=== PATIENT | female | born 1945 | race Caucasian/White ===

== ENCOUNTER 2019-06-21 07:06 | Outpatient (CLI) | payer MEDICARE, OTHER, SELFPAY ==
[2019-06-21 08:12] LABS: Alanine Aminotransferase 22 U/L (4-35); Albumin Level 4.3 g/dL (3.5-5.1); Alkaline Phosphatase 111 U/L (38-126); Aspartate Amino Transferase 27 U/L (14-36); Bilirubin,Total 0.6 mg/dL (0.2-1.3); Blood Urea Nitrogen 18 mg/dL (7-17); Calcium 9.3 mg/dL (8.4-10.2); Carbon Dioxide 29 mmol/L (22-30); Chloride 98 mmol/L (98-107); Cholesterol 214 mg/dL (0-200); Estimated Glomerular Filt Rate > 60; Glucose 85 mg/dL (65-105); HDL Direct 66 mg/dL; Potassium 4.6 mmol/L (3.4-5.0); Sodium 140 mmol/L (137-145); Triglycerides 131 mg/dL (<150)
[2019-06-21 08:23] LABS: LDL Cholesterol Direct 116 mg/dL
[2019-06-21 08:40] LABS: Vitamin D 25 Hydroxy 55.6 ng/mL
== END 2019-06-21 07:07 | disposition home or self-care (01) ==
LOC: ANHLAB 07:11
PROVIDERS: PCP Emergency Medicine; Visit Provider Emergency Medicine
DX: E78.2 Mixed hyperlipidemia (principal); E55.9 Vitamin D deficiency, unspecified
CPT/HCPCS: 36415; 80053; 80061; 82306

== ENCOUNTER → 2019-07-30 13:27 | Outpatient (CLI) | payer MEDICARE, OTHER, SELFPAY ==
--- NOTE | ~2019-07-30 | XR_ITS ---
EXAMINATION: XR foot RT min 3V DATE: 07/30/2019 13:59 INDICATION: Hallux rigidus. TECHNIQUE: 3 views of right foot were obtained. COMPARISON: Right foot radiographs 08/16/2018 FINDINGS: Pes planus is noted. There are changes of arthrodesis procedure of first metatarsophalangea l joint with bone graft and dorsal plate and screws. There are changes of arthrodesis procedure at se cond proximal interphalangeal joint with screw fixation. There is absence of the head of fourth proxi mal phalanx, which may be postsurgical. There are adjacent foci of heterotopic ossification. There is severe osteoarthritis of the ankle joint, subtalar joint, and talonavicular joint. There is mild to moderate osteoarthritis of many of the interphalangeal joints. There are enthesophytes at the posteri or and plantar aspects of calcaneal tuberosity. IMPRESSION: 1. Arthrodesis procedures at first metatarsophalangeal joint and second proximal interphalangeal join t. 2. Polyarticular osteoarthritis. 3. Pes planus. Reviewed, dictated and finalized at location A. IMPRESSION: 1. Arthrodesis procedures at first metatarsophalangeal joint and second proxima l interphalangeal joint. 2. Polyarticular osteoarthritis. 3. Pes planus.
== END ==
PROVIDERS: PCP Emergency Medicine; Visit Provider Podiatrist Foot & Ankle Surgery
DX: M20.21 Hallux rigidus, right foot (principal); M19.071 Primary osteoarthritis, right ankle and foot
CPT/HCPCS: 73630

== ENCOUNTER 2019-08-13 10:57 | Outpatient (CLI) | payer MEDICARE, OTHER, SELFPAY ==
--- NOTE | ~2019-08-13 | XR_ITS ---
EXAMINATION: XR foot RT min 3V DATE: 08/13/2019 11:23 INDICATION: Right foot arthritis TECHNIQUE: Dorsoplantar, lateral, and 2 oblique views of the right foot were obtained. COMPARISON: 07/30/2019 FINDINGS: Again noted are changes of arthrodesis procedure at the first metatarsophalangeal and secon d proximal interphalangeal joints. There is severe osteoarthritis of the ankle joint, the subtalar ervin int, and the talonavicular joint. Again noted is absence of the head of the fourth proximal phalanx, possibly postsurgical. The soft tissues are unremarkable. There is no fracture. Changes of prior dist al fibular fracture are noted. IMPRESSION: 1. Arthrodesis procedures of the first metatarsophalangeal joint and second interphalangeal joint, un changed. 2. Polyarticular osteoarthritis. Reviewed, dictated and finalized at location A. IMPRESSION: 1. Arthrodesis procedures of the first metatarsophalangeal joint and second int erphalangeal joint, unchanged. 2. Polyarticular osteoarthritis.
== END 2019-08-13 10:58 | disposition home or self-care (01) ==
PROVIDERS: PCP Emergency Medicine; Visit Provider Podiatrist Foot & Ankle Surgery
DX: M13.871 Other specified arthritis, right ankle and foot (principal); Z98.1 Arthrodesis status
CPT/HCPCS: 73630

== ENCOUNTER 2019-09-10 10:33 | Outpatient (CLI) | payer MEDICARE, OTHER, SELFPAY ==
--- NOTE | ~2019-09-10 | XR_ITS ---
EXAMINATION: XR foot RT min 3V DATE: 09/10/2019 10:51 INDICATION: Acquired hallux limitus of right great toe. TECHNIQUE: 3 views of right foot were obtained. COMPARISON: Right foot radiographs 08/13/2019, 08/16/2018 FINDINGS: Pes planus is noted. There are changes of arthrodesis procedure of first metatarsophalangea l joint with dorsal plate and screws and bone graft. There are changes of arthrodesis procedure of se cond proximal interphalangeal joint with instrumentation. No acute fracture. There is severe osteoart hritis of the ankle joint, subtalar joint, and talonavicular joint. There is mild osteoarthritis of m any of the midfoot joints and interphalangeal joints. There is mild osteoarthritis of second and thir d metatarsophalangeal joints. There are enthesophytes at the posterior plantar aspects of calcaneal t uberosity. IMPRESSION: 1. Polyarticular osteoarthritis. 2. Arthrodesis of first metatarsophalangeal joint and second proximal interphalangeal joint. 3. Pes planus. Reviewed, dictated and finalized at location E. IMPRESSION: 1. Polyarticular osteoarthritis. 2. Arthrodesis of first metatarsophalangeal joint and second proximal interphal angeal joint. 3. Pes planus.
== END 2019-09-10 10:34 | disposition home or self-care (01) ==
PROVIDERS: PCP Emergency Medicine; Visit Provider Podiatrist Foot & Ankle Surgery
DX: M20.5X1 Other deformities of toe(s) (acquired), right foot (principal); M19.071 Primary osteoarthritis, right ankle and foot
CPT/HCPCS: 73630

== ENCOUNTER 2019-10-09 07:30 | Outpatient (CLI) | payer MEDICARE, OTHER, SELFPAY ==
--- NOTE | ~2019-10-09 | XR_ITS ---
EXAMINATION: XR foot RT min 3V DATE: 10/09/2019 07:49 INDICATION: Acquired hallux limitus of right great toe. Postop. TECHNIQUE: 3 views of right foot were obtained. COMPARISON: Right foot radiographs 09/10/2019, 08/13/2019 FINDINGS: Pes planus is noted. There are changes of arthrodesis procedure of first metatarsophalangea l joint with plate and screws and bone graft. There are changes of arthrodesis procedure of second pr oximal interphalangeal joint. There is a transverse fracture of proximal metaphysis of second proxima l phalanx. The distal fracture fragment demonstrates impaction. There is a nonaggressive lytic lesion diaphysis of fourth proximal phalanx, likely benign. There may be surgical changes of head of fourth proximal phalanx. There is mild to moderate osteoarthritis of many of the midfoot joints and interph alangeal joints. There is severe osteoarthritis of the ankle joint, subtalar joint, and talonavicular joint. There are enthesophytes at the posterior and plantar aspects of calcaneal tuberosity. IMPRESSION: 1. Transverse fracture proximal diaphysis of second proximal phalanx. 2. Arthrodesis procedures of first metatarsophalangeal joint and second proximal interphalangeal join t. 3. Nonaggressive lytic lesion of diaphysis of fourth proximal phalanx, likely a benign lesions such a s an enchondroma. 4. Polyarticular osteoarthritis. 5. Pes planus. Reviewed, dictated and finalized at location A. IMPRESSION: 1. Transverse fracture proximal diaphysis of second proximal phalanx. 2. Arthrodesis procedures of first metatarsophalangeal joint and second proxima l interphalangeal joint. 3. Nonaggressive lytic lesion of diaphysis of fourth proximal phalanx, likely a benign lesions such as an enchondroma. 4. Polyarticular osteoarthritis. 5. Pes planus.
== END 2019-10-09 07:31 | disposition home or self-care (01) ==
LOC: ANHIMG 07:33
PROVIDERS: PCP Emergency Medicine; Visit Provider Podiatrist Foot & Ankle Surgery
DX: M20.5X1 Other deformities of toe(s) (acquired), right foot (principal); S92.511A Displaced fracture of proximal phalanx of right lesser toe(s), initial encounter for closed fracture; X58.XXXA Exposure to other specified factors, initial encounter; Z98.1 Arthrodesis status; M89.9 Disorder of bone, unspecified; M19.071 Primary osteoarthritis, right ankle and foot; M21.41 Flat foot [pes planus] (acquired), right foot
CPT/HCPCS: 73630

== ENCOUNTER 2020-01-08 07:00 | Outpatient (CLI) | payer MEDICARE, OTHER, SELFPAY ==
[2020-01-08 07:33] LABS: Alanine Aminotransferase 25 U/L (4-35); Albumin Level 4.1 g/dL (3.5-5.1); Alkaline Phosphatase 102 U/L (38-126); Anion Gap 6 mmol/L (8-16); Aspartate Amino Transferase 33 U/L (14-36); Bilirubin,Total 0.6 mg/dL (0.2-1.3); Blood Urea Nitrogen 20 mg/dL (7-17); Calcium 9.1 mg/dL (8.4-10.2); Carbon Dioxide 31 mmol/L (22-30); Chloride 103 mmol/L (98-107); Cholesterol 220 mg/dL (0-200); Estimated Glomerular Filt Rate > 60; Glucose 93 mg/dL (65-105); HDL Direct 55 mg/dL; Potassium 4.4 mmol/L (3.4-5.0); Sodium 140 mmol/L (137-145); Triglycerides 129 mg/dL (<150)
[2020-01-08 07:44] LABS: LDL Cholesterol Direct 126 mg/dL
== END 2020-01-08 07:01 | disposition home or self-care (01) ==
PROVIDERS: PCP Emergency Medicine; Visit Provider Emergency Medicine
DX: E78.5 Hyperlipidemia, unspecified (principal)
CPT/HCPCS: 36415; 80053; 80061

== ENCOUNTER 2020-02-09 14:00 | Emergency (ER) | payer MEDICARE, OTHER, SELFPAY ==
--- NOTE | 2020-02-09 14:02 | ED.GENADULT ---
HPI - General Adult General Chief complaint: Chest Pain Stated complaint: Chest Pain Time Seen by Provider: 02/09/20 14:02 Source: patient Mode of arrival: ambulatory Limitations: no limitations History of Present Illness HPI narrative: 75-year-old female patient presents to the [facility] with complaints of shortness of breath and chest pain for the past 2 days. Patient states that yesterday she did have an episode of nausea and vomiting. Patient denies any nausea vomiting today. Patient states that the shortness of breath gets really bad with exertion especially walking or trying to go upstairs. Patient states she has never had this before. Patient states she did have foot surgery in June of this year. Patient states she did take some Tylenol as well as some Coricidin for her symptoms today. Patient denies any fevers, body aches or chills but states she does have what she describes just overall muscle aches. Related Data Home Medications Medication Instructions Recorded Confirmed calcium carbonate-vitamin D3 600 1 cap PO DAILY cap 06/25/19 mg calcium-200 unit capsule cholecalciferol (vitamin D3) 25 1,000 unit PO DAILY 06/25/19 mcg (1,000 unit) capsule gelatin 650 mg capsule See Rx Instructions .ROUTE .COMPLEX 06/25/19 inulin 1.5 gram chewable tablet See Rx Instructions .ROUTE .COMPLEX 06/25/19 multivit with 1 tablet PO DAILY 06/25/19 uuceuxjb-eqzb-GV-lutein 8 mg iron-400 mcg-300 mcg tablet naproxen sodium 220 mg tablet 220 mg PO DAILY PRN tablet 06/25/19 Allergies Allergy/AdvReac Type Severity Reaction Status Date / Time No Known Allergies Allergy Unverified 11/01/18 10:26 Review of Systems Review of Systems: Narrative: CONSTITUTIONAL: Denies fever, chills, or sweats. EYES: Denies visual changes, redness, or discharge. ENT: Denies rhinorrhea, congestion, sore throat, or otalgia. CARDIOVASCULAR: Positive generalized chest pain, denies palpitations, or edema. RESPIRATORY: Denies cough, positive dyspnea with exertion. GASTROINTESTINAL: Denies abdominal pain, nausea, vomiting, or diarrhea. GENITOURINARY: Denies dysuria or hematuria. SKIN: Denies rash or itching. MUSCULOSKELETAL: Denies back pain, joint pain, or myalgia. NEUROLOGIC: Denies headache, numbness, or weakness. PSYCHIATRIC: Denies anxiety or depression. [facility] Past Medical History Medical History (Updated 02/09/20 @ 14:33 by DAVIDA Wilcox) Breast cancer With chemo and a right-sided lumpectomy Hyperlipidemia Other screening mammogram Pulmonary embolism Surgical History Surgical History (Updated 02/09/20 @ 14:33 by DAVIDA Wilcox) H/O foot surgery Right foot June 2019 Family History Family History Sibling Family history of multiple sclerosis Mother Family history of Alzheimer's disease, Onset Age: 86 Other Family history of coronary artery disease Social History Social History Smoking status: Former smoker Smoking end date: 04/25/74 Alcohol intake: current Exam Narrative: Exam Narrative: GENERAL: Well-appearing, well-nourished, and in no acute distress. HEAD: Normocephalic, atraumatic. EYES: PERRLA and EOMI. ENT: Nares clear, no rhinorrhea or epistaxis. Mucous membranes moist. NECK: Supple. No lymphadenopathy CHEST: Clear to auscultation. No respiratory distress. Patient able talk clear complete sentences. No tripoding noted. HEART: Regular rate and rhythm. No murmur heard. Normal peripheral pulses. Patient does have 1-2+ pitting edema noted to bilateral lower extremities. ABDOMEN: Soft, nontender, nondistended, normal active bowel sounds. EXTREMITIES: Normal range of motion. SKIN: Warm, dry, no rash. NEURO: No focal deficits. Alert and oriented x3. Course Vital Signs Vital signs: Vital Signs Temperature 36.9 C 02/09/20 14:14 Pulse Rate 97 10
--- NOTE | 2020-02-09 14:05 | ECG_ITS ---
Measurements Intervals [place] Rate: 99 P: 60 CT: 150 QRS: 70 QRSD: 82 T: 51 QT: 347 QTc: 445 Interpretive Statements SINUS RHYTHM FREQUENT ATRIAL PREMATURE COMPLEXES BORDERLINE T WAVE ABNORMALITY- ANTERIOR LEADS BASELINE ARTIFACT- II, III, AVF ABNORMAL ECG Electronically Signed On 02-09-2020 18:13:14 CDT by Gerardo Peters D.O.
[2020-02-09 14:14] VITALS: BP 114/72; PULSE 97; RESP 18; TEMP 36.9; O2SAT 98
--- NOTE | 2020-02-09 14:42 | PC.NURSE ---
1419 [facility] called. pt requested to go to [facility] here for transfer.1425 transferred care to [facility]. no change in status since arrival.
--- NOTE | 2020-02-09 15:37 | PC.NURSE ---
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
== END 2020-02-09 14:25 | disposition short-term general hospital (02) ==
PROVIDERS: Emergency Provider Nurse Practitioner Family; PCP Emergency Medicine
DX: R06.02 Shortness of breath (principal); R07.9 Chest pain, unspecified; R94.31 Abnormal electrocardiogram [ECG] [EKG]; Z87.891 Personal history of nicotine dependence; E78.5 Hyperlipidemia, unspecified; Z86.711 Personal history of pulmonary embolism; Z85.3 Personal history of malignant neoplasm of breast
CPT/HCPCS: 93005; 99215; G0463

== ENCOUNTER 2020-02-26 13:34 | Outpatient (CLI) | payer MEDICARE, OTHER, SELFPAY ==
--- NOTE | 2020-03-01 07:54 | WPDHOLTEREM ---
Holter/Event Monitor Holter/Event Monitor Date of procedure: 02/26/20 Procedure Type: 48 hour holter monitor Indications: Dyspnea Conclusion: 1. 48 hour holter monitor on 02/26/20. 2. Predominant rhythm is sinus rhythm. HR range 67-128 bpm; average HR 88 bpm. 3. There are 54 premature supraventricular complexes and 3 supraventricular couplets. One short run of atrial tachycardia at 176 bpm lasting 4 beats. 4. There are 108 premature ventricular complexes and 2 ventricular couplets. No ventricular tachycardia. 5. No sinoatrial or atrioventricular blocks. No significant pauses greater than 2 seconds. 6. No symptoms available for correlation.
== END 2020-02-26 13:35 | disposition home or self-care (01) ==
PROVIDERS: PCP Emergency Medicine; Visit Provider Emergency Medicine
DX: R06.00 Dyspnea, unspecified (principal)
CPT/HCPCS: 93225; 93226

== ENCOUNTER 2021-01-06 10:34 | Outpatient (CLI) | payer MEDICARE, OTHER, SELFPAY ==
[2021-01-06 12:11] LABS: Alanine Aminotransferase 27 U/L (4-35); Albumin Level 4.3 g/dL (3.5-5.1); Alkaline Phosphatase 90 U/L (38-126); Anion Gap 10 mmol/L (8-16); Aspartate Amino Transferase 29 U/L (14-36); Bilirubin,Total 0.3 mg/dL (0.2-1.3); Blood Urea Nitrogen 18 mg/dL (7-17); Calcium 9.6 mg/dL (8.4-10.2); Carbon Dioxide 28 mmol/L (22-30); Chloride 102 mmol/L (98-107); Cholesterol 248 mg/dL (0-200); Estimated Glomerular Filt Rate > 60; Glucose 93 mg/dL (65-110); HDL Direct 61 mg/dL; Potassium 4.4 mmol/L (3.4-5.0); Sodium 140 mmol/L (137-145); Triglycerides 145 mg/dL (<150)
[2021-01-06 12:22] LABS: LDL Cholesterol Direct 133 mg/dL
== END 2021-01-06 10:35 | disposition home or self-care (01) ==
PROVIDERS: PCP Emergency Medicine; Visit Provider Emergency Medicine
DX: E78.2 Mixed hyperlipidemia (principal)
CPT/HCPCS: 36415; 80053; 80061

== ENCOUNTER 2021-07-28 07:12 | Outpatient (CLI) | payer MEDICARE, OTHER, SELFPAY ==
[2021-07-28 08:23] LABS: Alanine Aminotransferase 26 U/L (4-35); Alkaline Phosphatase 93 U/L (38-126); Anion Gap 6 mmol/L (8-16); Aspartate Amino Transferase 29 U/L (14-36); Bilirubin,Total 0.4 mg/dL (0.2-1.3); Blood Urea Nitrogen 18 mg/dL (7-17); Calcium 8.8 mg/dL (8.4-10.2); Carbon Dioxide 25 mmol/L (22-30); Chloride 107 mmol/L (98-107); Cholesterol 235 mg/dL (0-200); Estimated Glomerular Filt Rate > 60; Glucose 86 mg/dL (65-110); HDL Direct 48 mg/dL; Potassium 4.1 mmol/L (3.4-5.0); Sodium 138 mmol/L (137-145); Triglycerides 130 mg/dL (<150)
[2021-07-28 08:33] LABS: LDL Cholesterol Direct 130 mg/dL
== END 2021-07-28 07:13 | disposition home or self-care (01) ==
PROVIDERS: PCP Emergency Medicine; Visit Provider Emergency Medicine
DX: E78.2 Mixed hyperlipidemia (principal)
CPT/HCPCS: 36415; 80053; 80061

== ENCOUNTER 2022-01-27 07:35 | Outpatient (CLI) | payer MEDICARE, OTHER, SELFPAY ==
[2022-01-27 08:04] LABS: Alanine Aminotransferase 30 U/L (6-35); Albumin Level 4.2 g/dL (3.5-5.1); Alkaline Phosphatase 96 U/L (38-126); Anion Gap 7 mmol/L (8-16); Aspartate Amino Transferase 31 U/L (14-36); Bilirubin,Total 0.5 mg/dL (0.2-1.3); Blood Urea Nitrogen 17 mg/dL (7-17); Calcium 8.9 mg/dL (8.4-10.2); Carbon Dioxide 29 mmol/L (22-30); Chloride 104 mmol/L (98-107); Cholesterol 233 mg/dL (0-200); Estimated Glomerular Filt Rate 53; Glucose 91 mg/dL (65-110); HDL Direct 55 mg/dL; Potassium 4.5 mmol/L (3.4-5.0); Sodium 140 mmol/L (137-145); Triglycerides 121 mg/dL (<150)
[2022-01-27 08:15] LABS: LDL Cholesterol Direct 143 mg/dL
== END 2022-01-27 07:36 | disposition home or self-care (01) ==
PROVIDERS: PCP Emergency Medicine; Visit Provider Emergency Medicine
DX: E78.2 Mixed hyperlipidemia (principal)
CPT/HCPCS: 36415; 80053; 80061

== ENCOUNTER 2022-05-31 07:57 | Outpatient (CLI) | payer MEDICARE, OTHER, SELFPAY ==
[2022-05-31 08:35] LABS: Alanine Aminotransferase 31 U/L (6-35); Albumin Level 4.2 g/dL (3.5-5.1); Alkaline Phosphatase 109 U/L (38-126); Anion Gap 4 mmol/L (8-16); Aspartate Amino Transferase 31 U/L (14-36); Bilirubin,Total 0.6 mg/dL (0.2-1.3); Blood Urea Nitrogen 16 mg/dL (7-17); Carbon Dioxide 29 mmol/L (22-30); Chloride 103 mmol/L (98-107); Cholesterol 250 mg/dL (0-200); Estimated Glomerular Filt Rate 53; Glucose 95 mg/dL (65-110); HDL Direct 55 mg/dL; Potassium 4.4 mmol/L (3.4-5.0); Sodium 136 mmol/L (137-145); Triglycerides 139 mg/dL (<150)
[2022-05-31 08:46] LABS: LDL Cholesterol Direct 137 mg/dL
== END 2022-05-31 07:58 | disposition home or self-care (01) ==
LOC: ANHLAB 08:00
PROVIDERS: PCP Emergency Medicine; Visit Provider Emergency Medicine
DX: E78.2 Mixed hyperlipidemia (principal)
CPT/HCPCS: 36415; 80053; 80061

== ENCOUNTER 2023-02-09 10:03 | Emergency (ER) | payer MEDICARE, OTHER, SELFPAY ==
[2023-02-09 10:13] VITALS: BP 136/76; PULSE 82; RESP 20; TEMP 36.2; O2SAT 97
--- NOTE | 2023-02-09 10:13 | ED.GENADULT ---
HPI - General Adult General Chief complaint: Ear Stated complaint: Left Ear Irritation Time Seen by Provider: 02/09/23 10:14 Source: patient, RN notes reviewed and old records reviewed Mode of arrival: ambulatory Limitations: no limitations History of Present Illness HPI narrative: 78-year-old female presents to the [facility] with left ear pain since Tuesday. Has taken Tylenol. States the pain radiates into her left neck and into her throat. Denies fevers, chest pain, abdominal pain. No sinus congestion, denies cough. Onset (ago): day(s) (5) Related Data Home Medications Medication Instructions Recorded Confirmed cholecalciferol (vitamin D3) 25 1,000 unit PO DAILY 06/25/19 02/09/23 mcg (1,000 unit) capsule rwjhhzpg-ldio-etvl 8 mg-folic 400 1 tablet PO DAILY 06/25/19 02/09/23 mcg-K 50 mcg-lutein 300 mcg tablet (Centrum Silver Women) Allergies Allergy/AdvReac Type Severity Reaction Status Date / Time No Known Allergies Allergy Verified 02/09/23 10:06 Review of Systems Review of Systems: All systems reviewed & are unremarkable except as noted in HPI and below Constitutional: Constitutional: Reports no additional constitutional complaints Eyes: Eyes: Reports no additional eye complaints ENT: Reports as per HPI Cardiovascular: Cardiovascular: Reports no additional cardiovascular complaints, Denies chest pain and Denies dyspnea Respiratory: Respiratory: Reports no additional respiratory complaints, Denies chest congestion, Denies cough and Denies dyspnea Gastrointestinal: Gastrointestinal: Reports no additional gastrointestinal complaints, Denies abdominal pain, Denies nausea and Denies vomiting Musculoskeletal: Musculoskeletal: Reports no additional musculoskeletal complaints Integumentary/Breasts: Skin/Breast: Reports system reviewed and no additional complaints, except as docu Neurologic: Reports system reviewed and no additional complaints, except as documented Psychiatric: Psychiatric: Reports no additional psychiatric complaints Allergic/Immunologic: Allergic/Immunologic: Reports no additional allergic/immunologic complaints [facility] Past Medical History Medical History Breast cancer With chemo and a right-sided lumpectomy Hyperlipidemia Other screening mammogram Pulmonary embolism Surgical History Surgical History H/O foot surgery Right foot June 2019 Family History Family History Sibling Family history of multiple sclerosis Mother Family history of Alzheimer's disease, Onset Age: 86 Other Family history of coronary artery disease Social History Social History Smoking status: Former smoker Smoking end date: 04/25/74 Alcohol intake: current Current Housing: Decline to Answer Concerned About Future Housing: Decline to Answer Difficulty Paying Gas/Electric Bills: Decline to Answer Difficulty Paying for Meds: Decline to Answer Currently Unemployed: Decline to Answer Education: Decline to Answer Difficulty w/ Childcare or Family Care: Decline to Answer Comments At the time of my signature, I reviewed and agree with the nursing past medical, surgical, social, and family history. There is no relevant family history pertinent to the patient complaint. Exam Const: General: cooperative, healthy appearing, comfortable, no acute distress, well developed, alert and well nourished Nutritional Appearance: well nourished Orientation/consciousness: patient oriented x3 Limitations: no limitations HENMT: Head: normal to inspection Ears: hearing grossly normal bilaterally, external ears normal, EAC's normal and TM abnormal wth effusion serous on the right and erythematous on the left Face/Nose/Sinus: Normal external nose present,
== END 2023-02-09 10:29 | disposition home or self-care (01) ==
PROVIDERS: Emergency Provider Nurse Practitioner; PCP Emergency Medicine
DX: H65.03 Acute serous otitis media, bilateral (principal); H66.92 Otitis media, unspecified, left ear; Z87.891 Personal history of nicotine dependence; E78.5 Hyperlipidemia, unspecified; Z86.711 Personal history of pulmonary embolism; Z85.3 Personal history of malignant neoplasm of breast; Z92.21 Personal history of antineoplastic chemotherapy; Z90.11 Acquired absence of right breast and nipple
CPT/HCPCS: 99213; G0463

== ENCOUNTER 2023-02-11 05:00 | Emergency (ER) | payer MEDICARE, OTHER, SELFPAY ==
[2023-02-11 05:02] VITALS: BP 152/78; PULSE 95; RESP 20; TEMP 36.9; O2SAT 98
--- NOTE | 2023-02-11 06:36 | ED.GENADULT ---
HPI - General Adult General Chief complaint: Ear Stated complaint: ear pain Time Seen by Provider: 02/11/23 05:29 History of Present Illness HPI narrative: Patient is a 78-year-old female who presents the emergency department with chief complaint of left ear pain. Patient reports she was seen in urgent care recently diagnosed with an ear infection and started on amoxicillin patient reports she is continues to have pain in the TMJ joint area that is worse whenever she opens her mouth the patient reports she has pain that radiates into the ear patient reports no trauma denies pain in the mastoid area denies fever runny nose or sore throat. Related Data Home Medications Medication Instructions Recorded Confirmed cholecalciferol (vitamin D3) 25 1,000 unit PO DAILY 06/25/19 02/09/23 mcg (1,000 unit) capsule lwsmckmx-wavp-qivt 8 mg-folic 400 1 tablet PO DAILY 06/25/19 02/09/23 mcg-K 50 mcg-lutein 300 mcg tablet (Centrum Silver Women) Allergies Allergy/AdvReac Type Severity Reaction Status Date / Time No Known Allergies Allergy Verified 02/09/23 10:06 Review of Systems Review of Systems: A 10 system review of systems was completed on the patient and is negative except for what is stated in the HPI. Nursing and ancillary documentation was reviewed. [facility] Past Medical History Medical History Breast cancer With chemo and a right-sided lumpectomy Hyperlipidemia Other screening mammogram Pulmonary embolism Surgical History Surgical History H/O foot surgery Right foot June 2019 Family History Family History Sibling Family history of multiple sclerosis Mother Family history of Alzheimer's disease, Onset Age: 86 Other Family history of coronary artery disease Social History Social History Smoking status: Former smoker Smoking end date: 04/25/74 Alcohol intake: current Current Housing: Decline to Answer Concerned About Future Housing: Decline to Answer Difficulty Paying Gas/Electric Bills: Decline to Answer Difficulty Paying for Meds: Decline to Answer Currently Unemployed: Decline to Answer Education: Decline to Answer Difficulty w/ Childcare or Family Care: Decline to Answer Exam Narrative: GENERAL: Well-appearing, well-nourished, and in no acute distress. HEAD: Normocephalic, atraumatic. EYES: PERRLA and EOMI. ENT: Nares clear, no rhinorrhea or epistaxis. Mucous membranes moist. Tenderness to palpation of the left TMJ area NECK: Supple. CHEST: Clear to auscultation. No respiratory distress. HEART: Regular rate and rhythm. No murmur heard. Normal peripheral pulses. ABDOMEN: Soft, nontender, nondistended, normal active bowel sounds. EXTREMITIES: Normal range of motion. No edema. SKIN: Warm, dry, no rash. NEURO: No focal deficits. Alert and oriented x3. PSYCH: Normal mood and affect. Course Vital Signs Vital signs: Vital Signs Temperature 36.9 C 02/11/23 05:02 Pulse Rate 95 02/11/23 05:02 Respiratory Rate 20 02/11/23 05:02 Blood Pressure 152/78 H 02/11/23 05:02 Pulse Oximetry 98 02/11/23 05:02 Oxygen Delivery Room Air 02/11/23 05:02 Temperature 36.9 C 02/11/23 05:02 Pulse Rate 95 02/11/23 05:02 Respiratory Rate 20 02/11/23 05:02 Blood Pressure 152/78 H 02/11/23 05:02 Pulse Oximetry 98 02/11/23 05:02 Oxygen Delivery Room Air 02/11/23 05:02 Medical Decision Making [facility] Narrative Medical decision making narrative: Differential diagnosis TMJ pain otitis media, Patient's exam was consistent with TMJ pain the patient has been treated with oral antibiotics but showing no signs of acute otitis media on exam. The patient will be started on a pu
[2023-02-11 07:05] VITALS: BP 148/68; PULSE 88; RESP 16; O2SAT 100
== END 2023-02-11 07:06 | disposition home or self-care (01) ==
PROVIDERS: Emergency Provider Emergency Medicine; PCP Emergency Medicine
DX: M26.609 Unspecified temporomandibular joint disorder, unspecified side (principal); E78.5 Hyperlipidemia, unspecified; Z85.3 Personal history of malignant neoplasm of breast; Z87.891 Personal history of nicotine dependence
CPT/HCPCS: 96372; 99283; J1100

== ENCOUNTER 2023-03-04 10:59 | Outpatient (CLI) | payer MEDICARE, OTHER, SELFPAY ==
--- NOTE | ~2023-03-04 | CT_ITS ---
EXAMINATION: CT cervical spine wo con DATE: 03/04/2023 11:16 INDICATION: Left neck pain. TECHNIQUE: Computed tomography (CT) of the cervical spine was performed without intravenous contrast. Automated exposure control and iterative reconstruction technique were employed. The dose-length pro duct was 178.07 mGy-cm. COMPARISON: None FINDINGS: There is 10 degrees levoscoliosis of cervical spine. Vertebral body heights are normal. The re is mildly decreased disc height at C3-C4 and C4-C5 and severely decreased disc height at C5-C6 and C6-C7. The following disc levels are specifically discussed: C2-C3: There is mild bilateral uncovertebral joint osteoarthritis. There is mild bilateral facet join t osteoarthritis. There is mild right neural foraminal stenosis. There is no central canal stenosis. C3-C4: There is moderate bilateral uncovertebral joint osteoarthritis. There is moderate bilateral fa cet joint osteoarthritis. There is mild right neural foraminal stenosis. There is no central canal st enosis. C4-C5: There is moderate bilateral uncovertebral joint osteoarthritis. There is moderate and severe l eft facet joint osteoarthritis. There is mild bilateral neural foraminal stenosis. There is mild cent ral canal stenosis. C5-C6: There is severe bilateral uncovertebral joint osteoarthritis. There is severe bilateral facet joint osteoarthritis. There is moderate right and mild left neural foraminal stenosis. There is mild central canal stenosis. C6-C7: There is severe bilateral uncovertebral joint osteoarthritis. There is mild bilateral facet ervin int osteoarthritis. There is mild right and moderate left neural foraminal stenosis. There is mild ce ntral canal stenosis. C7-T1: There is no uncovertebral joint osteoarthritis. There is severe bilateral facet joint osteoart hritis. There is mild bilateral neural foraminal stenosis. There is no central canal stenosis. IMPRESSION: 1. Severe cervical spondylosis. 2. Cervical levoscoliosis. Reviewed, dictated and finalized at location E. LENE PLANT OPERATOR
== END 2023-03-04 11:00 | disposition home or self-care (01) ==
PROVIDERS: PCP Emergency Medicine; Visit Provider Emergency Medicine
DX: M47.892 Other spondylosis, cervical region (principal); Z87.39 Personal history of other diseases of the musculoskeletal system and connective tissue
CPT/HCPCS: 72125

== ENCOUNTER 2023-03-30 13:56 | Outpatient (CLI) | payer MEDICARE, OTHER, SELFPAY ==
--- NOTE | ~2023-03-30 | DEXA_ITS ---
Bone Density Report Name: MALDONADO CUEVA Age: 78 Sex: Female Ethnicity: White Date of : 1945 Indication: osteopenia; height loss; prior fracture; Referring Provider: HUONG GUZMAN Study: Bone densitometry was performed. Exam Date: March 30, 2023 Accession number: [id number] Bone Density: Region BMD T-score Z-score Classification AP Spine(L1, L4) 0.973 -0.6 2.1 Normal Femoral Neck (Left) 0.657 -1.7 0.6 Osteopenia Total Hip (Left) 0.734 -1.7 0.4 Osteopenia Femoral Neck (Right) 0.670 -1.6 0.7 Osteopenia Total Hip (Right) 0.730 -1.7 0.3 Osteopenia Total Hip Mean 0.732 -1.7 0.4 Osteopenia World Health Organization criteria for BMD impression classify patients as: Normal (T-score at or above -1.0), Osteopenia (T-score between -1.0 and -2.5), or Osteoporosis (T-score at or below -2.5). 10-year Fracture Risk(1): Major Osteoporotic Fracture 20% Hip Fracture 4.6% Reported Risk Factors: [place] (), Neck BMD=0.657, BMI=31.2, previous fracture (1) FRAX(R) Version 3.08. Fracture probability calculated for an untreated patient. Fracture probability may be lower if the patient has received treatment. Previous Exams: Region Exam Age BMD T-score BMD Change BMD Change Date g/cm2 vs Baseline vs Previous AP Spine (L1,L4) 03/30/2023 78 0.973 -0.6 0.039 (4.1%)* 0.039 (4.1%)* 01/24/2019 74 0.935 -0.9 Total Hip(Left) 03/30/2023 78 0.734 -1.7 0.019 (2.6%) 0.019 (2.6%) 01/24/2019 74 0.715 -1.9 Total Hip(Right) 03/30/2023 78 0.730 -1.7 0.006 (0.8%) 0.006 (0.8%) 01/24/2019 74 0.724 -1.8 *Denotes significance at 95% confidence level, LSC for AP Spine = 0.022 g/cm2, LSC for Total Hip = 0.027 g/cm2 Clinical Information Provided by Patient: Has had a low trauma fracture Patient maximum height was 66 Menopause Age: 52 Onset of menses at age 11 Number of children 2 Impression: The patient has low bone mass, based on the Left Total Hip T-score. The patient has an estimated ten-year risk of hip fracture of 4.6% and an estimated ten-year risk of major fracture of 20%, based on the WHO FRAX algorithm. The patient has risk factors, including: previous fracture. No significant bone loss was observed. Discussion: BONE DENSITY IS LOW AT ONE OR MORE SKELETAL SITES. THE PATIENT'S BMD AND CLINICAL RISK FACTORS CONTRIBUTE TO THIS PATIENT'S HIGH RISK OF FRACTURE. This patient's lowest T-score is l
== END 2023-03-30 13:57 | disposition home or self-care (01) ==
LOC: ANHIMG 13:57
PROVIDERS: PCP Emergency Medicine; Visit Provider Emergency Medicine
DX: M85.89 Other specified disorders of bone density and structure, multiple sites (principal); Z78.0 Asymptomatic menopausal state
CPT/HCPCS: 77080

== ENCOUNTER 2023-05-05 10:30 | Outpatient (RCR) | payer MEDICARE, OTHER, SELFPAY ==
--- NOTE | 2023-04-07 13:53 | PTOPEVAL1 ---
Assessment and note entered by Richard Hargrove Evaluation Information Assessment Status Evaluation Diagnosis neck pain, cervical spondylosis Onset 02/05/23 Subjective Information Pt. reports she developed neck pain and headaches about 2 months ago. She reports that she initially went to the ER to address the headaches. She describes pain in the area of the suboccipital region. She reports that she has underwent CT scan of her head which had no significant findings. She states that she was given a regimen of steroids that seeme to reduce her pain. She states that her symptoms did improve after the steroid. She states that her pain is no longer constant. She has most complication with trying to rotate her head. She states that the pain makes turning her head while driving difficult. She reports that she has not experienced a headache in a few weeks. She reports very little complication with sleep due to pain. Pt. reports that her stiffness with turning her head is her biggest complication. She states that her goal for therapy is to decrease her pain and improve her neck mobility. Reported Pain Level Pain Score 0: Self Report Assessment PT Clinical Summary Pt. is an 78 year old female who enters the clinic with neck pain due to cervical spondylosis. She presents with impaired postural awareness, pain, impaired cervical spine mobility and proximal u.e. weakness. Continued skilled PT is indicated in order to improve these areas to allow the pt. to be able to complete all IADL's without limitation. Plan of Care Interventions Electrical Stimulation,Hot Pack/Cold Pack,Manual Therapy,Neuro Re-education,Patient/Caregiver Educati,Therapeutic Activities,Therapeutic Exercise PT Services Indicated Yes Treatment Frequency and 2x/week x 8 visits Duration These treatments will address the objective and functional deficits as defined above. The patient will be advanced safely and appropriately in order for the patient to progress towards his/her prior level of function. Additional exercises will be introduced and as well as a comprehensive home exercise program upon discharge, if needed, ?to ensure carryover of functional gains achieved in the clinic. This treatment plan has been reviewed and agreement upon by the patient.
--- NOTE | 2023-04-07 13:53 | OPREHPOC ---
Outpatient Therapy Plan of Care This is a Multidisciplinary Plan of Care that may contain components documented by all disciplines (PT, OT, and ST.) PT Problem 1 PT Problem #1 Knowledge Deficit PT Goal 1 Goal Pt. will be independent with a HEP addressing posture and cervical spine mobility Target Visit 2 PT Problem 2 PT Problem #2 Impaired Range of Motion PT Goal 1 Goal Pt. will present with improved c-spine rotation to 70 degrees bilateral to improve her visual field with activities such as driving. Target Visit 8 PT Problem 3 PT Problem #3 Impaired Strength PT Goal 1 Goal Pt. will improve proximal u.e. strength to 4+/5 or greater in all mm. groups to improve postural awareness. Target Visit 8 PT Problem 4 PT Problem #4 Pain PT Goal 1 Goal Pt. will provide pain reports of 1/10 at worst at the cervical spine with all IADL's. Target Visit 8
--- NOTE | 2023-05-05 11:25 | PTOPDC ---
Assessment and note entered by Richard Hargrove Discharge Information Assessment Status Evaluation Diagnosis neck pain, cervical spondylosis Onset 02/05/23 Subjective Information Pt. reports she is no longer having pain. She states that she has been doing exercise at home without complication. She reports that she is pleased with her progress and is ready for discharge at this time. Reported Pain Level Pain Score 0: Self Report Assessment PT Clinical Summary Pt. has met all goals established at the initial evaluation. She is encouraged to continue with her HEP at this time and will be discharged from our care. Plan of Care PT Services Indicated D/C from PT to an independent HEP
== END 2023-05-05 12:11 | disposition home or self-care (01) ==
LOC: ANHPT 10:30
PROVIDERS: PCP Emergency Medicine; Visit Provider Emergency Medicine
DX: M47.812 Spondylosis without myelopathy or radiculopathy, cervical region (principal)
CPT/HCPCS: 97110; 97112; 97140; 97161

== ENCOUNTER 2023-06-08 07:09 | Outpatient (CLI) | payer MEDICARE, OTHER, SELFPAY ==
[2023-06-08 08:26] LABS: Alanine Aminotransferase 18 U/L (6-35); Alkaline Phosphatase 97 U/L (38-126); Anion Gap 6 mmol/L (8-16); Aspartate Amino Transferase 25 U/L (14-36); Bilirubin,Total 0.5 mg/dL (0.2-1.3); Blood Urea Nitrogen 15 mg/dL (7-17); Calcium 8.8 mg/dL (8.4-10.2); Carbon Dioxide 27 mmol/L (22-30); Chloride 106 mmol/L (98-107); Cholesterol 213 mg/dL (0-200); Estimated Glomerular Filt Rate > 60; Glucose 91 mg/dL (65-110); HDL Direct 45 mg/dL; Potassium 3.8 mmol/L (3.4-5.0); Sodium 139 mmol/L (137-145); Triglycerides 101 mg/dL (<150)
[2023-06-08 08:36] LABS: LDL Cholesterol Direct 128 mg/dL
[2023-06-11 17:11] LABS: Vitamin D 1,25 (OH)2 Total 87 pg/mL (18-72); Vitamin D2 1,25 (OH)2 <8 pg/mL; Vitamin D3 1,25 (OH)2 87 pg/mL
== END 2023-06-08 07:10 | disposition home or self-care (01) ==
PROVIDERS: PCP Emergency Medicine; Visit Provider Emergency Medicine
DX: E55.9 Vitamin D deficiency, unspecified (principal); E78.2 Mixed hyperlipidemia
CPT/HCPCS: 36415; 80053; 80061; 82652

== ENCOUNTER 2023-12-07 06:51 | Outpatient (CLI) | payer MEDICARE, OTHER, SELFPAY ==
[2023-12-07 07:47] LABS: Alanine Aminotransferase 20 U/L (6-35); Albumin Level 4.2 g/dL (3.5-5.1); Alkaline Phosphatase 91 U/L (38-126); Anion Gap 7 mmol/L (4-12); Aspartate Amino Transferase 27 U/L (14-36); Bilirubin,Total 0.4 mg/dL (0.2-1.3); Blood Urea Nitrogen 25 mg/dL (7-17); Calcium 9.3 mg/dL (8.4-10.2); Carbon Dioxide 28 mmol/L (22-30); Chloride 101 mmol/L (98-107); Cholesterol 231 mg/dL (0-200); Estimated Glomerular Filt Rate > 60; Glucose 92 mg/dL (65-110); HDL Direct 56 mg/dL; Potassium 4.5 mmol/L (3.4-5.0); Sodium 136 mmol/L (137-145); Triglycerides 102 mg/dL (<150)
[2023-12-07 07:58] LABS: LDL Cholesterol Direct 144 mg/dL
== END 2023-12-07 06:52 | disposition home or self-care (01) ==
PROVIDERS: PCP Emergency Medicine; Visit Provider Emergency Medicine
DX: E55.9 Vitamin D deficiency, unspecified (principal); E78.2 Mixed hyperlipidemia
CPT/HCPCS: 36415; 80053; 80061; 82306

== ENCOUNTER 2024-06-06 06:55 | Outpatient (CLI) | payer MEDICARE, OTHER, SELFPAY ==
--- OUTSIDE RECORDS SUMMARY | 2024-06-06 07:02 | XMS_ITS | Clinical Summary ---
Author Organization [facility] Address [address] [place] [address] Care Team Providers Care Package Checker Name Role Phone Richard Canas MD Primary Care Provider [phone] Source Comments [facility],non-owned Affiliates and Associated Physician Practices is amultiple site organization consisting of ambulatory clinics and hospital sitesin [place], [place], [place] and [place]. This disclosure is being madepursuant to the Care Everywhere program and may not contain all information available regarding this patient. Last updated 18.[facility] [employer] Allergies No known active allergies Medications * Be aware that medications may not be up to date on this document. Alwaysverify current medications with the patient. Medication Sig Dispensed Refills Start Date End Date Status Multiple Vitamins-Minerals (MULTI FOR HER) TABS Take 1 tablet by mouth once daily Active Calcium Carbonate-Vitamin D (OYSTER SHELL CALCIUM/D) 500-200 MG-UNIT TAKE TABLET DAILY 1000mg Active simvastatin (ZOCOR) 10 MG tablet Take 10 mg by mouth once daily 09/12/2020 Active apixaban (ELIQUIS) 5 MG tablet Take 5 mg by mouth 2 times daily 12/31/2020 Active Active Problems Problem Noted Date Diagnosed Date Shock 02/11/2020 Hormone receptor positive breast cancer 02/11/20 20 Acute pulmonary embolism with acute cor pulmonal e 02/09/2020 Dyspnea on exertion Acute deep vein thrombosis ( DVT) of femoral vein of right lower extremity Immunizations Name Administration Dates Next Due [employer] primary monoval ent 12+ yr 0.3mL Purple cap 06/29/2020,06/08/2020 INFLUENZA VACCINE 02/09/2020, 8,02/20/2017,2015,02/18/2014 INFLUENZA VACCINE, ADJUVANTE D, QUADR. (FLUAD QUADRIVALENT; 65Y+) (AIIV4) 01/20/2021 INFLUENZA VACCINE, CELL CULT URE, QUADR. (FLUCELVAX QUADRIVALENT; 6MO+) (CCIIV4) 01/31/2019 INFLUENZA VACCINE, HIGH-DOSE , QUADR. (FLUZONE HIGH-DOSE QUADRIVALENT; 65Y+), 0.7 ML (HD-IIV4) 01/09/2018 Pneumococcal Pcv13 Conj 02/20/2017 TDAP (7yrs+) 05/23/2013 Family History Medical History Relation Name Comments CAD (Coronary Artery Disease) Father Other Other agent orange po ssible exposure when stationed in [place] with Cancer Neg Hx Diabetes - Type 2 Neg Hx Hypertension Neg Hx Relation Name Status Comments Father Other Social History Tobacco Use Types Packs/Day Years Used Date Smoking Tobacco: Former Cigarettes 1 11 1 4 1974 Smokeless Tobacco: Never Alcohol Use Standard Drinks/Week Comments Yes 3 (1 standard drink = 0.6 oz pur e alcohol) one high-ball once a week AUDIT-C Answer Date Recorded Q1: How often do you have a drink containing alc ohol? 2-4 times a month 02/09/2020 Q2: How many drinks containi ng alcohol do you have on a typical day when you are drinking? 1 or 2 02/09/2020 Q3: How often do you have si x or more drinks on one occasion? Never 02/09/2020 Sex and Gender Information Value Date Recorded Sex Assigned at Female 04/17/2021 1:50 PM ANATOMIC PATHOLOGIST Gender Identity Female 04/17/2021 1:50 PM ANATOMIC PATHOLOGIST Sexual Orientation Choose not to disclose 2020 1:50 PM ANATOMIC PATHOLOGIST Last Filed Vital Signs Vital Sign Reading Time Taken Comments Blood Pressure 133/93 02/26/2023 7:00 PM CDT Pulse 90 02/26/2023 7:00 PM CDT Temperature 36.7 C (98 F) 02/26/2023 2:22 PM CDT Respiratory Rate 19 02/26/2023 7:00 PM CDT Oxygen Saturation 95% 02/26/2023 7:00 PM CDT Inhaled Oxygen Concentration - - Weight 77.1 kg (170 lb) 02/26/2023 2:22 PM CDT Height 162.6 cm (5' 4 ) 02/26/2023 2:22 PM CDT Body Mass Index 29.18 02/26/2023 2:22 PM CDT Plan of Treatment Health Maintenance Due Date Last Done Comments BONE DENSITY TESTING 1945 MEDICARE AWV 12 MONTHS 1945 ZOSTER VACCINE (1 of 2) 1993 Respiratory Syncytial Virus (RSV) Vaccine Pt: or over 60 yrs (1 - 1-dose 75+ series) 2018 PNEUMOCOCCAL VACCINE 50+ (2 of 2 - PPSV23) 02/20/2018 02/20/2017 DTAP/TDAP/TD VACCINES (2 - Td or Tdap) 05/23/2023 05/23/2013 COVID-19 VACCINE (4 - season) 2023 01/20/2021, 06/29/2020, 06/08/2020 INFLUENZA VACCINE (#1) 2023 , 02/09/2020, 01/31/2019, Additional history exists DEPRESSION SCREENING 04/25/2024 HEPATITIS B VACCINE Aged Out No longe r eligible based on patient's age to complete this topic HIB VACCINE Aged Out No longer eligi ble based on patient's age to complete this topic HPV VACCINE Aged Out No longer eligi ble based on patient's age to complete this topic MENINGOCOCCAL (Group B) VACCINE Aged Out No longer eligible based on patient's age to complete this topic MENINGOCOCCAL VACCINE Aged Out No kym yoel eligible based on patient's age to complete this topic Advance Directives Documents on File Type Date Recorded Patient Chemistry Faculty Member Expl anation Adv Directive/Living Will/POA 02/16/2020 6:06 AM * LIMITED RESUSCITATION-PRIOR AND AFTER ARREST (Latest Code Status on File) Date Activated Date Inactivated Comments 02/10/2020 9:59 AM 02/14/2020 2:53 PM Question Answer Comments Limited Resuscitation: No Chest Compress ionNo Intubation, No Invasive Ventilation * DNR - IF PULSELESS NO CPR, NO SHOCK Date Activated Date Inactivated Comments 02/09/2020 8:31 PM 02/10/2020 9:59 AM Question Answer Comments : DO NOT discontinue a ny active orders without asking attending physician. Care Teams Package Checker Relationship Specialty Start Date End Date Richard Canas MD [address] [place], [place] [id number] PCP - General Internal Medicine 02/09/20
--- OUTSIDE RECORDS SUMMARY | 2024-06-06 07:02 | XMS_ITS | Clinical Summary ---
Author Organization [facility] Address [address] [place] [id number] Care Team Providers Care Pals Specialist Name Role Phone Unavailable Primary Care Provider Unavailabl e Social History Tobacco Use Types Packs/Day Years Used Date Smoking Tobacco: Never Assessed Comments Unknown Sex and Gender Information Value Date Recorded Sex Assigned at Not on file Legal Sex Female 8:16 PM CDT Gender Identity Not on file Sexual Orientation Not on file Plan of Treatment Health Maintenance Due Date Last Done Comments DTaP, Tdap and Td Vaccines ( 1 - Tdap) 1962 Zoster Vaccines (1 of 2) 1993 Dexa Scan (General) 01/16/2008 Pneumococcal Vaccine: 65+ Ye ars (1 of 1 - PCV) 01/16/2008 RSV Immunization or 60+ Years (1 - 1-dose 75+ series) 2018 COVID-19 Vaccine (2023-2 5 season) 2023 Influenza Adult (#1) 2024 Meningococcal B Vaccine Aged Out No l onger eligible based on patient's age to complete this topic Meningococcal Vaccine Aged Out No kym yoel eligible based on patient's age to complete this topic RSV Immunizations Under 20 Months Aged Out No longer eligible based on patient's age to complete this topic
--- OUTSIDE RECORDS SUMMARY | 2024-06-06 07:02 | XMS_ITS | Patient Health Summary ---
Author Organization [facility] Address [address] [place] [address] Care Team Providers Care Fixer Boarding Room Name Role Phone Richard Canas MD Primary Care Provider [phone] Note from [facility],non-owned Affiliates and Associated Physician Practices is amultiple site organization consisting of ambulatory clinics and hospital sitesin [place], [place], [place] and [place]. This disclosure is being madepursuant to the Care Everywhere program and may not contain all information available regarding this patient. Last updated 18.[facility] Allergies No known active allergies Medications * Be aware that medications may not be up to date on this document. Alwaysverify current medications with the patient. * Multiple Vitamins-Minerals (MULTI FOR HER) TABS Take 1 tablet by mouth once daily * Calcium Carbonate-Vitamin D (OYSTER SHELL CALCIUM/D) 500-200 MG-UNIT TAKE TABLET DAILY 1000mg * simvastatin (ZOCOR) 10 MG tablet(Started 09/12/2020) Take 10 mg by mouth once daily * apixaban (ELIQUIS) 5 MG tablet(Started 12/31/2020) Take 5 mg by mouth 2 times daily Active Problems Problem Noted Date Diagnosed Date Shock 02/11/2020 Hormone receptor positive breast cancer 02/11/20 20 Acute pulmonary embolism with acute cor pulmonal e 02/09/2020 Dyspnea on exertion Acute deep vein thrombosis ( DVT) of femoral vein of right lower extremity Immunizations * Covid Pfizer primary monovalent 12+ yr 0.3mL Purple cap(Given 06/29/2020, 06/08/2020) * INFLUENZA VACCINE(Given 02/09/2020, 01/09/2018, 02/20/2017, 02/22/2016, 02/18/2014) * INFLUENZA VACCINE, ADJUVANTED, QUADR. (FLUAD QUADRIVALENT; 65Y+) (AIIV4)(Given 01/20/2021) * INFLUENZA VACCINE, CELL CULTURE, QUADR. (FLUCELVAX QUADRIVALENT; 6MO+) (CCIIV4)(Given 01/31/2019) * INFLUENZA VACCINE, HIGH-DOSE, QUADR. (FLUZONE HIGH-DOSE QUADRIVALENT; 65Y+), 0.7 ML (HD-IIV4)(Given 01/09/2018) * Pneumococcal Pcv13 Conj(Given 02/20/2017) * TDAP (7yrs+)(Given 05/23/2013) Social History Tobacco Use Types Packs/Day Years Used Date Smoking Tobacco: Former Cigarettes 1 1974 Smokeless Tobacco: Never Alcohol Use Standard [...] Sex Assigned at Female 04/17/2021 1:50 PM [employer] Gender Identity Female 04/17/2021 1:50 PM [employer] Sexual Orientation Choose not to disclose 2020 1:50 PM [employer] Last Filed Vital Signs Vital Sign Reading [...] Mass Index 29.18 02/26/2023 2:22 PM CDT Procedures * CT HEAD WO CONTRAST(Performed 02/26/2023) Performed for Acute nonintractable headache, unspecified headache type * PT-INR [facility](Performed 02/26/2023) * COMPREHENSIVE METABOLIC PANEL(Performed 02/26/2023) * CBC W AUTO DIFFERENTIAL(Performed 02/26/2023) * URINE MICROSCOPIC ONLY REFLEX TO CULTURE(Performed 02/26/2023) * URINALYSIS REFLEX MICROSCOPIC REFLEX CULTURE(Performed 02/26/2023) * CULTURE URINE(Performed 02/26/2023) * PFT OXYGEN DESATURATION STUDY(Performed 05/07/2020) Performed for Acute saddle pulmonary embolism with acute cor pulmonale (HCC) * CARDIAC EKG ORDER(Performed 02/16/2020) * CBC W/O DIFFERENTIAL(Performed 02/14/2020) * BASIC METABOLIC PANEL (CALCIUM TOTAL)(Performed 02/14/2020) * EKG 12-LEAD(Performed 02/13/2020) Performed for Pulmonary embolism without acute cor pulmonale, unspecified chronicity, unspecified pulmonary embolism type (HCC) * HEPATIC FUNCTION PANEL(Performed 02/13/2020) * CBC W/O DIFFERENTIAL(Performed 02/13/2020) * BASIC METABOLIC PANEL (CALCIUM TOTAL)(Performed 02/13/2020) * OT EVAL AND TREAT(Performed 02/12/2020) * PTT [facility](Performed 02/12/2020) Performed for Pulmonary embolism without acute cor pulmonale, unspecified chronicity, unspecified pulmonary embolism type (HCC) * CBC W/O DIFFERENTIAL(Performed 02/12/2020) * BASIC METABOLIC PANEL (CALCIUM TOTAL)(Performed 02/12/2020) * PTT [facility](Performed 02/12/2020) Performed for Pulmonary embolism without acute cor pulmonale, unspecified chronicity, unspecified pulmonary embolism type (HCC) * PTT [facility](Performed 02/11/2020) Performed for Pulmonary embolism without acute cor pulmonale, unspecified chronicity, unspecified pulmonary embolism type (HCC) * ECHO COMPLETE(Performed 02/11/2020) Performed for Pulmonary embolism without acute cor pulmonale, unspecified chronicity, unspecified pulmonary embolism type (HCC) * PTT [facility](Performed 02/11/2020) Performed for Pulmonary embolism without acute cor pulmonale, unspecified chronicity, unspecified pulmonary embolism type (HCC) * FIBRINOGEN ACTIVITY(Performed 02/11/2020) Performed for Pulmonary embolism without acute cor pulmonale, unspecified chronicity, unspecified pulmonary embolism type (HCC) * CBC W/O DIFFERENTIAL(Performed 02/11/2020) * BASIC METABOLIC PANEL (CALCIUM TOTAL)(Performed 02/11/2020) * CARDIAC EKG ORDER(Performed 02/11/2020) * IR THROMBOLYSIS RECHECK(Performed 02/11/2020) Performed for Acute pulmonary embolism with acute cor pulmonale, unspecified pulmonary embolism type (HCC) * VAS BILATERAL VENOUS DUPLEX LE(Performed 02/11/2020) Performed for Pulmonary embolism without acute cor pulmonale, unspecified chronicity, unspecified pulmonary embolism type (HCC) * HEPATIC FUNCTION PANEL(Performed 02/11/2020) * PTT [facility](Performed 02/11/2020) Performed for Pulmonary embolism without acute cor pulmonale, unspecified chronicity, unspecified pulmonary embolism type (HCC) * FIBRINOGEN ACTIVITY(Performed 02/11/2020) Performed for Pulmonary embolism without acute cor pulmonale, unspecified chronicity, unspecified pulmonary embolism type (HCC) * CBC W/O DIFFERENTIAL(Performed 02/11/2020) * BASIC METABOLIC PANEL (CALCIUM TOTAL)(Performed 02/11/2020) * PHOSPHORUS BLOOD(Performed 02/10/2020) * BASIC METABOLIC PANEL (CALCIUM TOTAL)(Performed 02/10/2020) * CBC W/O DIFFERENTIAL(Performed 02/10/2020) * FIBRINOGEN ACTIVITY(Performed 02/10/2020) Performed for Pulmonary embolism without acute cor pulmonale, unspecified chronicity, unspecified pulmonary embolism type (HCC) * PTT [facility](Performed 02/10/2020) Performed for Pulmonary embolism without acute cor pulmonale, unspecified chronicity, unspecified pulmonary embolism type (HCC) * IR THROMBOLYSIS ARTERIAL(Performed 02/10/2020) Performed for Acute pulmonary embolism with acute cor pulmonale, unspecified pulmonary embolism type (HCC) * FIBRINOGEN ACTIVITY(Performed 02/10/2020) Performed for Pulmonary embolism without acute cor pulmonale, unspecified chronicity, unspecified pulmonary embolism type (HCC) * PTT [facility](Performed 02/10/2020) Performed for Pulmonary embolism without acute cor pulmonale, unspecified chronicity, unspecified pulmonary embolism type (HCC) * PTT [facility](Performed 02/10/2020) * LIPID PROFILE(Performed 02/10/2020) * PHOSPHORUS BLOOD(Performed 02/10/2020) Performed for Dyspnea on exertion, SOB (shortness of breath), Pulmonary embolism without acute cor pulmonale, unspecified chronicity, unspecified pulmonary embolism type (HCC) * MAGNESIUM BLOOD(Performed 02/10/2020) Performed for Dyspnea on exertion, SOB (shortness of breath), Pulmonary embolism without acute cor pulmonale, unspecified chronicity, unspecified pulmonary embolism type (HCC) * PTT [facility](Performed 02/10/2020) * PT-INR [facility](Performed 02/09/2020) * HEPATITIS C AB SCREEN RFLX NAAT QUANT(Performed 02/09/2020) Performed for Transaminitis * HEPATITIS B SURFACE ANTIGEN W RFLX CONFIRMATION(Performed 02/09/2020) Performed for Transaminitis * HEPATITIS B SURFACE ANTIBODY(Performed 02/09/2020) Performed for Transaminitis * HEPATITIS A ANTIBODY(Performed 02/09/2020) Performed for Transaminitis * GGT(Performed 02/09/2020) * LACTIC ACID BLOOD(Performed 02/09/2020) * PTT [facility](Performed 02/09/2020) * TROPONIN I(Performed 02/09/2020) * CT ANGIO CHEST PULM EMBOLISM(Performed 02/09/2020) Performed for Dyspnea on exertion, SOB (shortness of breath) * B-TYPE NATRIURETIC PEPTIDE(Performed 02/09/2020) * TROPONIN I(Performed 02/09/2020) * COMPREHENSIVE METABOLIC PANEL(Performed 02/09/2020) * CBC W AUTO DIFFERENTIAL(Performed 02/09/2020) * EKG 12-LEAD(Performed 02/09/2020) Performed for Dyspnea on exertion Results * CT HEAD WO CONTRAST (02/26/2023 6:12 PM CDT) Anatomical Region Laterality Modality Head Computed Tomogra phy 02/26/2023 6:13 PM CDT Impressions 02/26/2023 6:34 PM CDT IMPRESSION: No acute intracranial abnormality. Report dictated by Venancio Painter M.D. (radiology manager) 02/26/2023 6:18 PM I, Bryant Handy MD, PhD have personally reviewed and interpreted this examination/study. > Interpreting Provider: Bryant Handy MD, PhD on 02/26/2023 6:34 PM Narrative 02/26/2023 6:34 PM CDT EXAM: CT HEAD WO CONTRAST, DATE/TIME OF EXAM: 02/26/2023 6:12 PM, LOCATION: [facility] HISTORY: R51.9: Acute nonintractable headache, unspecified headache type ADDITIONAL CLINICAL INFORMATION: Ordering Provider Reason For Exam: Headache. EXAMINATION: CT scan of the head without intravenous contrast TECHNIQUE: CT of the head was performed without intravenous contrast according to standard protocol. CT dose reduction technique was used, including Automated Exposure Control. COMPARISON: No prior similar studies are available for comparison. FINDINGS: BRAIN PARENCHYMA: No acute hemorrhage, large vascular territory infarct, or mass effect. Scattered and confluent white matter hypodensities, which are nonspecific but likely represents the sequela of chronic microangiopathic change. Mild generalized parenchymal volume loss, which is commensurate for age. VENTRICLES/EXTRA-AXIAL SPACES: No ventriculomegaly or extra-axial collection. Basal cisterns are patent. EXTRACRANIAL STRUCTURES: No acute or suspicious osseous abnormality. Mild degenerative changes of the temporomandibular joints. Right suboccipital soft tissues with a fat-containing lesion measuring 4.5 x 1.8 cm in the axial plane, which is incompletely assessed but favored to represent a lipoma and can be correlated with direct physical examination. Visualized paranasal sinuses and mastoids demonstrate no significant abnormality. Orbits are unremarkable. Minimal calcific atherosclerosis of the carotid siphons. Procedure Note Bryant Handy MD - 02/26/2023 EXAM: CT HEAD WO CONTRAST, DATE/TIME OF EXAM: 02/26/2023 6:12 PM, LOCATION: [facility] HISTORY: R51.9: Acute nonintractable headache, unspecified headache type ADDITIONAL CLINICAL INFORMATION: Ordering Provider Reason For Exam: Headache. EXAMINATION: CT scan of the head without intravenous contrast TECHNIQUE: CT of the head was performed without intravenous contrast according to standard protocol. CT dose reduction technique was used, including Automated Exposure Control. COMPARISON: No prior similar studies are available for comparison. FINDINGS: BRAIN PARENCHYMA: No acute hemorrhage, large vascular territory infarct,or mass effect. Scattered and confluent white matter hypodensities, whichare nonspecific but likely represents the sequela of chronicmicroangiopathic change. Mild generalized parenchymal volume loss, which is commensuratefor age. VENTRICLES/EXTRA-AXIAL SPACES: No ventriculomegaly or extra-axial collection. Basal cisterns are patent. EXTRACRANIAL STRUCTURES: No acute or suspicious osseous abnormality.Mild degenerative changes of the temporomandibular joints. Right suboccipital soft tissues with a fat-containing lesion measuring 4.5 x 1.8 cm in the axial plane, which is incompletely assessed but favored to represent a lipoma and can be correlated with direct physical examination.Visualized paranasal sinuses and mastoids demonstrate no significant abnormality. Orbits are unremarkable. Minimal calcific atherosclerosis of the carotid siphons. IMPRESSION: No acute intracranial abnormality. Report dictated by Venancio Painter M.D. (radiology manager) 02/26/2023 6:18 PM IBryant MD, PhD have personally reviewed and interpreted this examination/study. > Interpreting Provider: Bryant Handy MD, PhD on 02/26/2023 6:34 PM Samuel Dominguez MD CT ORDERABLES * PT-INR [facility] (02/26/2023 3:16 PM CDT) Only the most recent of2 resultswithin the time period is included. PT 14.0 12.1 - 14.8 Seconds 02/26/2023 3:44 PM CDT [facility] INR 1.1 See Comment 02/26/2023 3:44 PM CDT [facility] Comment:The suggested therap eutic range for standard coumadin (warfarin) therapy is an INR of 2.0-3.0. For high-risk patients (Mechanical Mitral Valve Prosthesis, etc.), the suggested prophylactic therapeutic range is an INR of 2.5-3.5. Blood BLOOD SPECIMEN / Unknown Venipuncture / Unknown 02/26/2023 3:16 PM CDT 02/26/2023 3:21 PM CDT Manpreet Curiel MD LAB - COAGULATION OR DERABLES [facility] [address] [place] [id number], [facility] [phone] * (ABNORMAL) CBC W AUTO DIFFERENTIAL (02/26/2023 3:16 PM CDT) Only the most recent of2 resultswithin the time period is included. WBC 8.8 3.5 - 10.5 10 3/uL 02/26/2023 3:24 PM CDT [facility] RBC 4.64 3.80 - 5.20 10 6/uL 02/26/2023 3:24 PM T [facility] Hemoglobin 14.2 12.0 - 15.6 g/dL 02/26/2023 3:24 PM [facility] Hematocrit 42.3 35.0 - 45.0 % 02/26/2023 3:24 PM T [facility] MCV 91.2 80.7 - 98.3 fL 02/26/2023 3:24 PM T [facility] MCH 30.6 26.7 - 34.0 pg 02/26/2023 3:24 PM CDT [facility] MCHC 33.6 30.8 - 35.9 g/dL 02/26/2023 3:24 PM T [facility] RDW-SD 46.5 36.0 - 50.0 fL 02/26/2023 3:24 PM T [facility] RDW-CV 13.9 11.2 - 14.8 % 02/26/2023 3:24 PM T [facility] Platelet Count 263 150 - 400 10 3/uL 02/26/2023 3:24 PM T [facility] MPV 9.7 9.4 - 12.9 fL 02/26/2023 3:24 PM T [facility] nRBC Absolute 0.00 0 10 3/uL 02/26/2023 3:24 PM T [facility] nRBC Auto 0.0 0 /100 WBC 02/26/2023 3:24 PM [facility] Neutrophils % 75.6(H) 35.0 - 70.0 % 02/26/2023 3:24 PM CDT [facility] Lymphocytes % 14.0(L) 20.0 - 43.0 % 02/26/2023 3:24 PM CDT [facility] Monocytes % 7.6 5.0 - 13.0 % 02/26/2023 3:24 PM CDT [facility] Eosinophils % 2.3 0.0 - 6.0 % 02/26/2023 3:24 PM CDT [facility] Basophil % 0.3 0.0 - 2.0 % 02/26/2023 3:24 PM CDT [facility] Neutrophils Absolute 6.64 1.60 - 7.00 10 3/uL 02/26/2023 3:24 PM CDT [facility] Lymphocyte Absolute 1.23 1.10 - 3.90 10 3/uL 02/26/2023 3:24 PM CDT [facility] Monocytes Absolute 0.67 0.26 - 1.07 10 3/uL 02/26/2023 3:24 PM T [facility] Eosinophils Absolute 0.20 0.00 - 0.47 10 3/uL 02/26/2023 3:24 PM CDT [facility] Basophils Absolute 0.03 0.00 - 0.08 10 3/uL 02/26/2023 3:24 PM CDT [facility] Immature Granulocytes % 0.2 0.0 - 1.0 % 02/26/2023 3:24 PM CDT [facility] Immature Granulocytes Absolute 0.02 02/26/2023 3:24 PM T [facility] Blood BLOOD SPECIMEN / Unknown Venipuncture / Unknown 02/26/2023 3:16 PM CDT 02/26/2023 3:22 PM CDT Manpreet Curiel MD LAB - HEMATOLOGY ORD ERABLES [facility] [address] [place] [address], [facility] [phone] * (ABNORMAL) COMPREHENSIVE METABOLIC PANEL (02/26/2023 3:16 PM CDT) Only the most recent of2 resultswithin the time period is included. BUN 18 7 - 26 mg/dL 02/26/2023 3:48 PM [facility] Creatinine 0.86 0.56 - 0.96 mg/dL 02/26/2023 3:48 PM [facility] Sodium 143 136 - 145 mmol/L 02/26/2023 3:48 PM [facility] Potassium 4.4 3.5 - 4.5 mmol/L 02/26/2023 3:48 PM [facility] Chloride 106 98 - 107 mmol/L 02/26/2023 3:48 PM [facility] CO2 29 22 - 29 mmol/L 02/26/2023 3:48 PM [facility] Glucose 107 70 - 115 mg/dL 02/26/2023 3:48 PM [facility] Calcium 10.3(H) 8.4 - 10.2 mg/dL 02/26/2023 3:48 PM [facility] Protein Total 7.5 6.0 - 8.3 g/dL 02/26/2023 3:48 PM [facility] Albumin 3.6 3.4 - 5.0 g/dL 02/26/2023 3:48 PM [facility] Bilirubin Total 0.3 0.2 - 1.2 mg/dL 02/26/2023 3:48 PM [facility] Alkaline Phosphatase 146 40 - 150 U/L 02/26/2023 3:48 PM [facility] ALT 68(H) 5 - 55 U/L 02/26/2023 3:48 PM [facility] AST 47(H) 5 - 34 U/L 02/26/2023 3:48 PM [facility] Anion Gap 8 6 - 16 02/26/2023 3:48 PM [facility] BUN/Creatinine Ratio 21 7 - 23 02/26/2023 3:48 PM [facility] Osmolality Calculated 298(H) 275 - 295 mOsm/kg 02/26/2023 3:48 PM [facility] Albumin/Globulin Ratio 0.9(L) 1.1 - 2.3 02/26/2023 3:48 PM [facility] eGFR by CKD-EPI 68(L) >=90 mL/min/1.7 3 m2 02/26/2023 3:48 PM CDT [facility] Blood BLOOD SPECIMEN / Unknown Venipuncture / Unknown 02/26/2023 3:16 PM CDT 02/26/2023 3:22 PM CDT Manpreet Curiel MD LAB - CHEMISTRY ORDE RABLES Performing Organization Address City/[facility]/ZIP Co de Phone Number [address] [address], [facility] [phone] * URINE MICROSCOPIC ONLY REFLEX TO CULTURE (02/26/2023 2:54 PM CDT) Reflex Status Culture to follow 02/26/2023 3:27 PM CDT [facility] WBC UA 0-5 None Seen, 0-5 /HPF 02/26/2023 3:27 PM CDT [facility] Squamous Epithelial Cells UA None Seen None Seen, 0-2, 3-5 /HPF 02/26/2023 3:27 PM CDT [facility] Urine URINE SPECIMEN OBTAINED BY CLEAN CATCH PROCEDURE / Unknown Collection / Unknown 02/26/2023 2:54 PM CDT 02/26/2023 2:57 PM CDT Narrative [facility] - 02/26/2023 3:27 PM CDT Manpreet Curiel MD LAB - URINALYSIS ORD ERANIKI Performing Organization Address City/[facility]/ZIP Co de Phone Number [address] [address], [facility] [phone] * (ABNORMAL) URINALYSIS REFLEX MICROSCOPIC REFLEX CULTURE (02/26/2023 2:54 PM CDT) Color UA Straw Straw, Yellow 02/26/2023 3:23 PM CDT [facility] Clarity UA Clear Clear 02/26/2023 3:23 PM CDT [facility] Specific [place] UA 1.005 1.005 - 1.030 02/26/2023 3:23 PM CDT [facility] pH UA 7.0 5.0 - 8.0 pH 02/26/2023 3:23 PM CDT [facility] Protein UA Negative Negative 02/26/2023 3:23 PM CDT [facility] Glucose UA Negative Negative 02/26/2023 3:23 PM CDT [facility] Ketone UA Negative Negative 02/26/2023 3:23 PM CDT [facility] Bilirubin UA Negative Negative 02/26/2023 3:23 PM CDT [facility] Blood UA Negative Negative 02/26/2023 3:23 PM CDT [facility] Nitrite UA Negative Negative 02/26/2023 3:23 PM CDT [facility] Leukocyte Esterase Trace(A) Negative 02/26/2023 3:23 PM CDT [facility] Urobilinogen UA Negative Negative mg/dL 02/26/2023 3:23 PM CDT [facility] Urine URINE SPECIMEN OBTAINED BY CLEAN CATCH PROCEDURE / Unknown Collection / Unknown 02/26/2023 2:54 PM CDT 02/26/2023 2:57 PM CDT Narrative [facility] - 02/26/2023 3:23 PM CDT Manpreet Curiel MD LAB - URINALYSIS ORD ERABLES [facility] [address] [place] [address], [place] [phone] * CULTURE URINE (02/26/2023 2:54 PM CDT) Culture Urine 10,000-50,000 CFU/mL urogenital filemon [place] 02/27/2023 9:14 PM [employer] [facility] MICROBIOLOGY Urine URINE SPECIMEN OBTAINED BY CLEAN CATCH PROCEDURE / Unknown Collection / Unknown 02/26/2023 2:54 PM CDT 02/26/2023 3:27 PM CDT Manpreet Curiel MD LAB - MICROBIOLOGY O RDERABLES [facility] MICROBIOLOGY [address] [place] [address], [facility] [phone] * PFT OXYGEN DESATURATION STUDY (05/07/2020 3:06 PM [employer]) Rajendra Huerta MD - 05/07/2020 3:06 PM [employer] [facility] DEPARTMENT OF PULMONARY, CRITICAL CARE, AND SLEEP MEDICINE OXYGEN TITRATION STUDY Antonella Nieves Nikolas 05/07/2020 INTERPRETATION The test was performed on the treadmill at a speed of 1.2 mph at room air. The patient was able to complete 4 minutes with lowest SpO2 of 97%. Then the treadmill speed was increased to 2 mph for another 4 minutes and oxygen saturation remained above 97% throughout the test. IMPRESSION 1. At the above level of activity the patient's oxygen saturation remained 97 % and above on room air. Leonard Rutherford MD ( Fellow) Division of Pulmonary, Critical Care, & Sleep Medicine [facility] 05/07/2020 4:52 PM I have personally reviewed the fellow's interpretation of the test and made any necessary changes when needed. Rajendra Castillo MD Environmental Assistant of Internal Medicine Division of Pulmonary, Critical Care and Sleep Medicine [facility] Pager: [phone] Narrative Rajendra Castillo MD - 05/07/2020 3:06 PM [employer] Leonard Rutherford MD 05/07/2020 4:51 PM Shane Browning MD PFT ORDERABLES * CARDIAC EKG ORDER (02/16/2020 8:25 AM CDT) Only the most recent of2 resultswithin the time period is included. Narrative 02/16/2020 8:25 AM CDT Ordered by an unspecified provider. Scanned Document CARDIAC SERVICES ORD ERABLES * (ABNORMAL) CBC W/O DIFFERENTIAL (02/14/2020 7:44 AM CDT) Only the most recent of6 resultswithin the time period is included. WBC 6.6 3.5 - 10.5 10 3/uL 02/14/2020 8:20 AM CDT [facility] RBC 3.92 3.90 - 5.00 10 6/uL 02/14/2020 8:20 AM T [facility] Hemoglobin 11.9(L) 12.0 - 15.5 g/dL 02/14/2020 8:20 AM T [facility] Hematocrit 35.8 35.0 - 45.0 % 02/14/2020 8:20 AM CDT [facility] MCV 91.3 81.0 - 97.0 fL 02/14/2020 8:20 AM [facility] MCH 30.4 28.0 - 34.0 pg 02/14/2020 8:20 AM T [facility] MCHC 33.2 32.0 - 36.0 g/dL 02/14/2020 8:20 AM T [facility] Platelet Count 259 150 - 400 10 3/uL 02/14/2020 8:20 AM T [facility] RDW-SD 47.8 36.0 - 50.0 fL 02/14/2020 8:20 AM [facility] RDW-CV 14.2 11.2 - 14.8 % 02/14/2020 8:20 AM [facility] MPV 10.3 9.3 - 12.8 fL 02/14/2020 8:20 AM [facility] nRBC Absolute 0.00 0 10 3/uL 02/14/2020 8:20 AM [facility] nRBC Auto 0.0 0 /100 WBC 02/14/2020 8:20 AM [facility] Blood BLOOD SPECIMEN / Unknown Lab Venipuncture / Unknown 02/14/2020 7:44 AM CDT 02/14/2020 8:09 AM CDT Jovany Kruger DO LAB - HEMATOLO GY ORDERABLES Performing Organization Address [facility] Co de Phone Number [address] [address], [facility] [phone] * BASIC METABOLIC PANEL (CALCIUM TOTAL) (02/14/2020 7:44 AM CDT) Only the most recent of6 resultswithin the time period is included. BUN 13 7 - 26 mg/dL 02/14/2020 8:42 AM [facility] Creatinine 0.8 0.6 - 1.2 mg/dL 02/14/2020 8:42 AM [facility] Sodium 142 136 - 145 mmol/L 02/14/2020 8:42 AM [facility] Potassium 3.7 3.5 - 4.5 mmol/L 02/14/2020 8:42 AM [facility] Chloride 106 98 - 107 mmol/L 02/14/2020 8:42 AM [facility] CO2 25 22 - 29 mmol/L 02/14/2020 8:42 AM [facility] Glucose 114 70 - 115 mg/dL 02/14/2020 8:42 AM [facility] Calcium 8.8 8.4 - 10.2 mg/dL 02/14/2020 8:42 AM [facility] Anion Gap 15 8 - 18 02/14/2020 8:42 AM [facility] BUN/Creatinine Ratio 16 7 - 23 02/14/2020 8:42 AM [facility] Osmolality Calculated 295 270 - 300 mOsm/kg 02/14/2020 8:42 AM [facility] eGFR >60 >60 mL/min/1.7 3 m2 02/14/2020 8:42 AM [facility] Blood BLOOD SPECIMEN / Unknown Lab Venipuncture / Unknown 02/14/2020 7:44 AM CDT 02/14/2020 8:09 AM CDT Jovany Kruger DO LAB - CHEMISTR Y ORDERABLES [facility] [address] [place] [address], [facility] [phone] * EKG 12-LEAD (02/13/2020 10:01 AM CDT) Only the most recent of2 resultswithin the time period is included. Ventricular Rate 90 BPM [facility] Atrial Rate 90 BPM [facility] P-R Interval 134 ms [facility] QRS Duration ms 68 ms [facility] Q-T Interval ms 374 ms [facility] QTC Calculation (Bezet) 457 ms [facility] Calculated P [place] 21 degrees [facility] Calculated R [place] 59 degrees [facility] Calculated T [place] 66 degrees [facility] Interpretation EKG SINUS RHYTHM WITH FREQUENT and consecutive PREMATURE VENTRICULAR COMPLEXES LOW VOLTAGE QRS NONSPECIFIC T WAVE ABNORMALITY ABNORMAL ECG WHEN COMPARED WITH ECG OF 09-FEB-2020 15:16, PREMATURE VENTRICULAR COMPLEXES ARE NOW PRESENT Confirmed by Jamar Loza ([id number]) on 03/12/2020 11:06:41 AM [facility] 02/13/2020 10:0 1 AM CDT 03/12/2020 11:06 AM [employer] Luiz Sharma MD ECG ORDERABLES [facility] * (ABNORMAL) HEPATIC FUNCTION PANEL (02/13/2020 7:31 AM CDT) Only the most recent of2 resultswithin the time period is included. Protein Total 5.7(L) 6.0 - 8.3 g/dL 020 8:40 AM CDT [facility] Albumin 2.0(L) 3.4 - 5.0 g/dL 02/13/2020 8:40 AM CDT [facility] Bilirubin Total 0.4 0.2 - 1.2 mg/dL 01/24 8:40 AM [facility] Bilirubin Conjugated 0.2 0.0 - 0.5 mg/dL 02/13/2020 8:40 AM [facility] Bilirubin Unconjugated 0.2 Unconjugated Bilirubin is a calculated value: Reference ranges have not been established. mg/dL 02/13/2020 8:40 AM [facility] Alkaline Phosphatase 176(H) 40 - 150 Units/L 02/13/2020 8:40 AM [facility] ALT 60(H) 0 - 55 Units/L 02/13/2020 8:40 AM [facility] AST 33 5 - 34 Units/L 02/13/2020 8:40 AM [facility] Albumin/Globulin Ratio 0.5(L) 1.1 - 2.3 02/13/2020 8:40 AM T [facility] Blood BLOOD SPECIMEN / Unknown Lab Venipuncture / Unknown 02/13/2020 7:31 AM CDT 02/13/2020 8:07 AM CDT Arsalan Dunham MD LAB - CHEMISTRY ORDLuz LUO [address] [address], [facility] [phone] * (ABNORMAL) PTT [facility] (02/12/2020 8:31 AM CDT) Only the most recent of10 resultswithin the time period is included. APTT 72.3(H) 23.0 - 38.4 Seconds 02/12/2020 9:29 AM CDT [facility] Comment:Suggested therapeuti c range for full dose I.V. unfractionated heparin therapy for venous thromboembolism is 71 to 109 seconds. Blood BLOOD SPECIMEN / Unknown Venipuncture / Unknown 02/12/2020 8:31 AM CDT 02/12/2020 9:19 AM CDT Jovany Tomas MD LAB - COAGULATI ON ORDERABLES Performing Organization Address [facility] Co de Phone Number [address] [address], [facility] [phone] * ECHO COMPLETE (02/11/2020 1:41 PM CDT) Anatomical Region Laterality Modality Chest Echo 02/11/2020 12:3 0 PM CDT Narrative Procedure Note Yesica Dumas MD - 02/11/2020 Judy Barrientos MD ECHOCARDIOGRAPHY RA DIANT * (ABNORMAL) FIBRINOGEN ACTIVITY (02/11/2020 12:16 PM CDT) Only the most recent of4 resultswithin the time period is included. Fibrinogen Clauss 694(H) 200 - 400 mg/dL 02/11/2020 12:35 PM CDT [facility] Blood BLOOD SPECIMEN / Unknown Venipuncture / Unknown 02/11/2020 12:16 PM CDT 02/11/2020 12:27 PM CDT Noble Malloy MD LAB - COAGULATION OR DERABLES Performing Organization Address City/[facility]/ZIP Co de Phone Number [place] [address] [place] [address], [facility] [phone] * IR THROMBOLYSIS RECHECK (02/11/2020 11:08 AM CDT) Anatomical Region Laterality Modality Head, Lower Extremity, Upper Extremity, Abdomen X-Ray Angiography 02/11/2020 4:18 PM CDT Impressions 02/11/2020 4:27 PM CDT Impression: Improved perfusion of the left lung with small amount of residual thrombus. Good perfusion of the right lung. The catheters were removed. Follow up: Restart systemic anticoagulation at full dose. I, Scotty Dockery, was present and performed/supervised the entire procedure. This report was electronically signed by SCOTTY DOCKERY on 02/11/2020 4:27 PM . Narrative 02/11/2020 4:27 PM CDT History: 75-year-old female with bilateral submassive pulmonary embolism status post catheter directed thrombolysis. Patient returns for pulmonary angiogram with possible removal of catheters. Operators: 1.Dr. Dockery, Attending Physician 2.Dr. Cam, Attending Physician 3.Tara Martino, MS3 Anesthesia: 1.Intravenous analgesia - Fentanyl 25 mcg Procedure: 1.Pulmonary angiogram. 2.Removal of EKOS catheters and access sheaths. Fluoroscopic time: 0.6 minutes Contrast: 35 mL of Isovue-300 Procedure in detail: The procedure, risks, possible complications, and the use of conscious sedation were explained to the patient and informed consent was obtained. The patient was brought to the angiography suite and placed supine on the table. The right groin was prepped and draped in the usual sterile fashion. A administrative liaison film of the chest was obtained, which was demonstrating bilateral EKOS catheters and access sheaths. The right sheath was flushed and connected for pressure measurement. The measured pressures were 44/22 (31) mmHg. The right EKOS catheter was removed and a pigtail flush catheter was advanced into the pulmonary artery over a Stern wire. Venogram was performed demonstrating good perfusion of the right lung and improved perfusion of the left lung with small amount of residual thrombus. Given the patient has improved clinically was decided to remove the left EKOS catheter and the access sheaths. Hemostasis was achieved with manual compression for 10 minutes. A sterile dressing was applied. The patient tolerated the procedure well and was transferred to the holding area in stable condition. There were no immediate complications associated with the procedure. Procedure Note Scotty Dockery MD - 02/11/2020 History: 75-year-old female with bilateral submassive pulmonary embolism status post catheter directed thrombolysis. Patient returns forpulmonary angiogram with possible removal of catheters. Operators: 1.Dr. Dockery, Attending Physician 2.Dr. Cam, Attending Physician 3.Tara Martino, MS3 Anesthesia: 1.Intravenous analgesia - Fentanyl 25 mcg Procedure: 1.Pulmonary angiogram. 2.Removal of EKOS catheters and access sheaths. Fluoroscopic time: 0.6 minutes Contrast: 35 mL of Isovue-300 Procedure in detail: The procedure, risks, possible complications, and the use of conscious sedation were explained to the patient and informed consent wasobtained. The patient was brought to the angiography suite and placed supine onthe table. The right groin was prepped and draped in the usual sterile fashion. A administrative liaison film of the chest was obtained, which was demonstrating bilateral EKOS catheters and access sheaths. The right sheath was flushed and connected for pressure measurement. The measured pressures were 44/22 (31) mmHg. The right EKOS catheter was removed and a pigtail flush catheter was advanced into the pulmonary artery over a Stern wire. Venogram was performed demonstrating good perfusion of the right lung and improved perfusion of the left lung with small amount of residual thrombus. Given the patient has improved clinically was decided to remove the left EKOS catheter and the access sheaths. Hemostasis was achieved with manual compression for 10 minutes. Asterile dressing was applied. The patient tolerated the procedure well and was transferred to the holding area in stable condition. There were no immediate complications associated with the procedure. Impression: Improved perfusion of the left lung with small amount of residual thrombus. Good perfusion of the right lung. The catheters were removed. Follow up: Restart systemic anticoagulation at full dose. IScotty, was present and performed/supervised the entireprocedure. This report was electronically signed by SCOTTY DOCKERY on 02/11/2020 4:27 PM . Emory Guillen MD IR ORDERABLES * VAS BILATERAL VENOUS DUPLEX LE (02/11/2020 8:28 AM CDT) Anatomical Region Laterality Modality Lower Extremity Intravascular Ul trasound 02/11/2020 7:53 AM CDT Narrative Procedure Note Richard Evans MD - 02/13/2020 Mone Smith MD VASCULAR LAB ORDERAB LES * PHOSPHORUS BLOOD (02/10/2020 11:12 PM CDT) Only the most recent of2 resultswithin the time period is included. Phosphorus 2.7 2.3 - 4.7 mg/dL 02/11/2020 2:52 AM CDT [facility] Blood BLOOD SPECIMEN / Unknown Venipuncture / Unknown 02/10/2020 11:12 PM CDT 02/10/2020 6:14 PM CDT Du Pond DO LAB - CHEMISTRY ISAC LUO [facility] [address] [place] [address], [facility] [phone] * IR THROMBOLYSIS ARTERIAL (02/10/2020 9:21 PM CDT) Anatomical Region Laterality Modality Pelvis, Upper Extremity, Lower Extremity X-Ray Angiography 02/10/2020 6:41 PM CDT Impressions 02/10/2020 9:19 PM CDT Impression: 1.Main pulmonary artery angiogram findings: minimal flow to the left lower lobe, preserved flow to the left upper lobe, and mildly decreased flow to the right lung. 2.Main pulmonary artery pressure: elevated at 49/25 (mean of 34) 3.Initiation of bilateral pulmonary artery catheter-directed thrombolysis. tPA is being infused @ 1 mg/hr on the left and @ 0.5 mg/hr on the right. Follow-up recommendations: 1.Strict bed rest until next follow-up in IR for thrombolysis recheck in ~ 18-24 hrs. 2.NPO after midnight. 3.Infuse tPA @ 1.0 mg/hour through the LEFT infusion catheter and @ 0.5 mg/hr through the RIGHT infusion catheter. 4.Infuse heparin @ 20 units/hour through both sheaths. 5.Continue systemic heparin through peripheral IV and titrate to PTT of 50-80. 6.CBC, BMP, serum fibrinogen, PT, PTT, and INR every 6 hours. 7.If serum fibrinogen level is < 200 mg/dL, reduce tPA dose to half. If serum fibrinogen level is < 100 mg/dL, stop tPA and change to normal saline infusion. 8.No percutaneous intervention or arterial puncture while tPA is running. 9.Neuro checks every hour. 10.In case of altered mental status or suspicion of bleeding anywhere, stop tPA and call the IR physician immediately. I, Dr. Guillen, was present and performed/supervised the entire procedure. This report was electronically signed by EMORY GUILLEN M.D. on 02/10/2020 9:19 PM . Narrative 02/10/2020 9:19 PM CDT History: Bilateral high risk submassive pulmonary embolism Operators: 1.Dr. Guillen, Attending Physician 2.Dr. Nguyen, Resident Physician Anesthesia: 1.Local anesthesia - 10 mL of 1% lidocaine 2.Intravenous analgesia - Fentanyl 50 mcg Procedure: 1.Ultrasound-guided access of the right common femoral vein. 2.Selective catheterization of the main pulmonary artery and angiogram. 3.Pressure measurement in the main pulmonary artery. 4.Placement of an ultrasound assisted (EKOS) infusion catheter with 12 cm infusion length through the right pulmonary artery for administration of tPA (alteplase) at 0.5 mg/hour. 5.Placement of an ultrasound assisted (EKOS) infusion catheter with 12 cm infusion length through the left pulmonary artery for administration of tPA (alteplase) at 1.0 mg/hour. Fluoroscopic time: 24.5 minutes Contrast: 17 mL of Isovue 300 Procedure in detail: The procedure, risks, and possible complications were explained to the patient in detail, and an informed consent was obtained. The patient was placed supine on the angiographic table. The right groin was prepped and draped in the usual sterile manner. A administrative liaison radiograph of the chest showed significant scoliosis and a left pleural effusion. Limited ultrasound of the right groin demonstrated a patent and compressible right common femoral vein. A simmons scale image was documented. Local anesthesia was provided with 1% lidocaine. Under real time ultrasound guidance, using a micropuncture needle, the right common femoral vein was accessed. The needle entry was documented. Following a series of exchanges, a 7 [place] 70 cm vascular sheath was placed. Using ultrasound guidance, another access was made adjacent to the previous access site in the right common femoral vein. The needle entry was documented, and after series of exchanges another 7 [place] 70 cm vascular sheath was placed. Using a 5 [place] Second Vp Hr Assessment catheter and 0.035 inch Glidewire combination, the main pulmonary artery was catheterized. Through a 5 [place] pigtail catheter, main pulmonary angiogram was performed which demonstrated minimal flow to the left lower lobe, preserved flow to the left upper lobe, and mildly decreased flow to the right lung. The pressure was measured in the main pulmonary artery and was found to be 49/25 (mean of 34) mmHg (normal: mean < 18-20 and systolic < 25). The right descending pulmonary artery was then catheterized with the Second Vp Hr Assessment catheter. Hand injection of contrast confirmed proper positioning. Over a 0.035 inch exchange length Stern wire, an ultrasound assisted (EKOS) infusion catheter with 12 cm infusion length was placed. The Second Vp Hr Assessment catheter was then used to catheterize the left descending pulmonary artery. Hand injection of contrast confirmed proper positioning. Over the Stern wire, an ultrasound assisted (EKOS) infusion catheter with 12 cm infusion length was placed. Both sheaths were secured with sutures and sterile dressing. Heparin infusion was initiated through both sheaths at 20 units/hour. tPA infusion was initiated through both infusion catheters. The patient tolerated the procedure well and was transferred to the ICU in stable condition. There were no immediate complications associated with the procedure. Procedure Note Emory Guillen MD - 02/10/2020 History: Bilateral high risk submassive pulmonary embolism Operators: 1.Dr. Guillen, Attending Physician 2.Dr. Nguyen, Resident Physician Anesthesia: 1.Local anesthesia - 10 mL of 1% lidocaine 2.Intravenous analgesia - Fentanyl 50 mcg Procedure: 1.Ultrasound-guided access of the right common femoral vein. 2.Selective catheterization of the main pulmonary artery and angiogram. 3.Pressure measurement in the main pulmonary artery. 4.Placement of an ultrasound assisted (EKOS) infusion catheter with 12cm infusion length through the right pulmonary artery for administration of tPA (alteplase) at 0.5 mg/hour. 5.Placement of an ultrasound assisted (EKOS) infusion catheter with 12cm infusion length through the left pulmonary artery for administration of tPA (alteplase) at 1.0 mg/hour. Fluoroscopic time: 24.5 minutes Contrast: 17 mL of Isovue 300 Procedure in detail: The procedure, risks, and possible complications were explained to the patient in detail, and an informed consent was obtained. The patient was placed supine on the angiographic table. The right groin was prepped and draped in the usual sterile manner. A administrative liaison radiograph of the chestshowed significant scoliosis and a left pleural effusion. Limited ultrasound of the right groin demonstrated a patent and compressible right common femoral vein. A simmons scale image wasdocumented. Local anesthesia was provided with 1% lidocaine. Under real time ultrasound guidance, using a micropuncture needle, the right common femoral vein was accessed. The needle entry was documented. Following a series of exchanges, a 7 [place] 70 cm vascular sheath was placed. Using ultrasound guidance, another access was made adjacent to the previous access site in the right common femoral vein. The needle entry was documented, and after series of exchanges another 7 [place] 70 cm vascular sheath was placed. Using a 5 [place] Second Vp Hr Assessment catheter and 0.035 inch Glidewirecombination, the main pulmonary artery was catheterized. Through a 5 [place] pigtail catheter, main pulmonary angiogram was performed which demonstrated minimal flow to the left lower lobe, preserved flow to the left upper lobe, and mildly decreased flow to the right lung. The pressure was measured in the main pulmonary artery and was found to be 49/25 (mean of 34) mmHg (normal: mean < 18-20 and systolic < 25). The right descending pulmonary artery was then catheterized with the Second Vp Hr Assessment catheter. Hand injection of contrast confirmed proper positioning. Over a 0.035 inch exchange length Stern wire, an ultrasound assisted (EKOS) infusion catheter with 12 cm infusion length was placed. The Second Vp Hr Assessment catheter was then used to catheterize the left descending pulmonary artery. Hand injection of contrast confirmed properpositioning. Over the Stern wire, an ultrasound assisted (EKOS) infusion catheterwith 12 cm infusion length was placed. Both sheaths were secured with sutures and sterile dressing. Heparin infusion was initiated through both sheaths at 20 units/hour. tPAinfusion was initiated through both infusion catheters. The patient tolerated the procedure well and was transferred to the ICUin stable condition. There were no immediate complications associated with the procedure. Impression: 1.Main pulmonary artery angiogram findings: minimal flow to the leftlower lobe, preserved flow to the left upper lobe, and mildly decreased flowto the right lung. 2.Main pulmonary artery pressure: elevated at 49/25 (mean of 34) 3.Initiation of bilateral pulmonary artery catheter-directedthrombolysis. tPA is being infused @ 1 mg/hr on the left and @ 0.5 mg/hr on the right. Follow-up recommendations: 1.Strict bed rest until next follow-up in IR for thrombolysis recheck in ~ 18-24 hrs. 2.NPO after midnight. 3.Infuse tPA @ 1.0 mg/hour through the LEFT infusion catheter and @ 0.5 mg/hr through the RIGHT infusion catheter. 4.Infuse heparin @ 20 units/hour through both sheaths. 5.Continue systemic heparin through peripheral IV and titrate to PTT of 50-80. 6.CBC, BMP, serum fibrinogen, PT, PTT, and INR every 6 hours. 7.If serum fibrinogen level is < 200 mg/dL, reduce tPA dose to half. If serum fibrinogen level is < 100 mg/dL, stop tPA and change to normal saline infusion. 8.No percutaneous intervention or arterial puncture while tPA isrunning. 9.Neuro checks every hour. 10.In case of altered mental status or suspicion of bleeding anywhere, stop tPA and call the IR physician immediately. I, Dr. Guillen, was present and performed/supervised the entire procedure. This report was electronically signed by EMORY GUILLEN M.D. on 02/10/2020 9:19 PM . Emory Guillen MD IR ORDERABLES * MAGNESIUM BLOOD (02/10/2020 11:52 AM CDT) Magnesium 1.9 1.6 - 2.6 mg/dL 02/10/2020 12:40 PM CDT [facility] Blood BLOOD SPECIMEN / Unknown Venipuncture / Unknown 02/10/2020 11:52 AM CDT 02/10/2020 12:12 PM CDT Judy Barrientos MD LAB - CHEMISTRY ORD ERABLES Performing Organization Address [facility]/ZIP Co de Phone Number [facility] [address] [place] [address], [facility] [phone] * (ABNORMAL) LIPID PROFILE (02/10/2020 11:52 AM CDT) Pathologist [facility] Cholesterol Total 187 <200 mg/dL 02/10/2020 12:40 PM CDT [facility] HDL 59 >40 mg/dL 02/10/2020 12:40 PM CDT [facility] Comment: ATP III Classification of HDL Cholesterol: <40 mg/dL: Considered a major risk factor. >60 mg/dL: Considered a negative risk factor. LDL Calculated 104(H) <100 mg/dL 02/10/2020 12:40 PM CDT [facility] Comment: ATP III Classification of LDL Cholesterol: <100 mg/dL: Optimal 100 - 129 mg/dL: Near Optimal/Above Optimal 130 - 159 mg/dL: Borderline High 160 - 189 mg/dL: High >190 mg/dL: Very High Triglycerides 118 <150 mg/dL 02/10/2020 12:40 PM T [facility] Comment: ATP III Classification of Triglycerides: <150 mg/dL: Normal 150 - 199 mg/dL: Borderline High 200 - 400 mg/dL: High >500 mg/dL: Very High Blood BLOOD SPECIMEN / Unknown Venipuncture / Unknown 02/10/2020 11:52 AM CDT 02/10/2020 12:12 PM CDT Judy Barrientos MD LAB - CHEMISTRY ORD ERABLES [facility] [address] [place] [address], [place] [phone] * HEPATITIS C AB SCREEN RFLX NAAT QUANT (02/09/2020 10:50 PM CDT) Hepatitis C Antibody Non-react donavon Non-reac tive 02/10/2020 12:49 AM CDT [facility] Comment:Hepatitis C Antibody screen indicates no serologic evidence of past or current infection with Hepatitis C Virus. Patients with unexplained liver disease who are immunocompromised or suspected of having acute Hepatitis C infection may benefit from Nucleic Acid Test (LACY) for Hepatitis C Viral RNA to confirm Hepatitis C status. Blood BLOOD SPECIMEN / Unknown Lab Venipuncture / Unknown 02/09/2020 10:50 PM CDT 02/10/2020 12:48 AM CDT Judy Barrientos MD LAB - CHEMISTRY ORD ERABLES Performing Organization Address City/[facility]/ZIP Co de Phone Number [facility] [address] [place] [address], [facility] [phone] * HEPATITIS B SURFACE ANTIBODY (02/09/2020 10:50 PM CDT) Hepatitis B Virus Surface Antibody Non-react donavon Non-react donavon 02/10/2020 12:49 AM CDT [facility] Comment: < 8 mIU/mL Hepatitis B surface Antibody (HBsAb). Nonreactive for HBsAb - individual is considered not immune to Hepatitis B Virus infection. Hepatitis B Surface Antibody Quantitative 2.9 <8.0 mIU/mL 02/10/2020 12:49 AM CDT [facility] Comment: Hepatitis B Surface Antibody Numeric Result Interpretation: Nonreactive: <8.0 mIU/mL Indeterminate: 8.0 - 12.0 mIU/mL Reactive: >12.0 mIU/mL Blood BLOOD SPECIMEN / Unknown Lab Venipuncture / Unknown 02/09/2020 10:50 PM CDT 02/10/2020 12:48 AM CDT Judy Barrientos MD LAB - CHEMISTRY ORD ERABLES [address] [address], [facility] [phone] * HEPATITIS B SURFACE ANTIGEN W RFLX CONFIRMATION (02/09/2020 10:50 PM CDT) Hepatitis B Virus Surface Antigen Non-reacti ve Non-reacti ve 02/10/2020 2:07 AM CDT [facility] Blood BLOOD SPECIMEN / Unknown Lab Venipuncture / Unknown 02/09/2020 10:50 PM CDT 02/10/2020 12:48 AM CDT Judy Barrientos MD LAB - CHEMISTRY ORD ERABLES [facility] [address] [place] [address], [place] [phone] * (ABNORMAL) GGT (02/09/2020 10:50 PM CDT) [facility] GGT 98(H) 9 - 64 Units/L 02/09/2020 11:31 PM CDT [facility] Blood BLOOD SPECIMEN / Unknown Lab Venipuncture / Unknown 02/09/2020 10:50 PM CDT 02/09/2020 6:14 PM CDT Judy Barrientos MD LAB - CHEMISTRY ORD ERABLES Performing Organization Address City/[facility]/ZIP Co de Phone Number [address] [address], [place] [phone] * HEPATITIS A ANTIBODY (02/09/2020 10:50 PM CDT) [facility] Hepatitis A Virus Antibody Total Negative Negative 02/12/2020 9:43 PM CDT [employer] ([facility]) Comment: Performed by [email or web address], [address] [place] [address] [email or web address], Alda Stern MD, Lab. Director Blood BLOOD SPECIMEN / Unknown Lab Venipuncture / Unknown 02/09/2020 10:50 PM CDT 02/09/2020 11:34 PM CDT Judy Barrientos MD LAB - CHEMISTRY ORD ERABLES [employer] ([facility]) [address] [place] [address], [facility] * LACTIC ACID BLOOD (02/09/2020 9:31 PM CDT) [facility] Lactic Acid-Stat 1.8 0.5 - 2.0 mmol/L 02/09/2020 10:01 PM CDT [facility] Blood BLOOD SPECIMEN / Unknown Venipuncture / Unknown 02/09/2020 9:31 PM CDT 02/09/2020 6:14 PM CDT Judy Barrientos MD LAB - CHEMISTRY ORD ARIADNE [address] [address], [facility] [phone] * (ABNORMAL) TROPONIN I (02/09/2020 6:07 PM CDT) Only the most recent of2 resultswithin the time period is included. Troponin I 0.312(HH) <0.032 ng/mL 02/09/2020 7:27 PM CDT [facility] Comment:Critical value previ ously called. Blood BLOOD SPECIMEN / Unknown Venipuncture / Unknown 02/09/2020 6:07 PM CDT 02/09/2020 6:14 PM CDT Farrah Figueroa MD LAB - CHEMISTRY ISAC LUO Performing Organization Address [facility]/ZIP Co de Phone Number [address] [address], [facility] [phone] * CT ANGIO CHEST PULM EMBOLISM (02/09/2020 5:20 PM CDT) Anatomical Region Laterality Modality Chest Computed Tomogra phy 02/09/2020 5:41 PM CDT Impressions 02/09/2020 8:39 PM CDT IMPRESSION: 1. Bilateral pulmonary emboli involving the left and right main pulmonary arteries extending to segmental arteries bilaterally, left greater than right. 2. Trace left pleural effusion. 3. Peripheral pulmonary opacities, left greater than right, may represent pulmonary infarcts. Mild to moderate atelectasis. Findings discussed with MIRA Constantino by Dr. Dalton at 5:39PM on 02/09/20 Dictated by Russell Minor MD (radiology manager). I, Dr. RICO BENÍTEZ MD have personally reviewed and interpreted this examination/study. This report was electronically signed by RICO BENÍTEZ MD on 02/09/2020 8:39 PM . Narrative 02/09/2020 8:39 PM CDT EXAMINATION: Computed tomography (CT) of the chest with contrast HISTORY: R06.00: Dyspnea on exertion R06.02: SOB (shortness of breath) TECHNIQUE: CT of the chest was performed following the uneventful administration of 75 mL of Isovue-370 intravenous contrast according to a pulmonary embolism protocol. COMPARISON: No prior study is available for comparison. FINDINGS: Bilateral pulmonary emboli involving the left and right main pulmonary arteries extending to some distal segmental arteries in the right and left upper and lower lobes, left greater than right. The main pulmonary artery is normal in course and caliber. There is a left-sided aortic arch. The aorta and main pulmonary arteries are normal in course and caliber. There are scattered areas of mild to moderate atelectasis bilaterally. There is a trace left pleural effusion. There are areas of peripheral opacity in both lungs, left greater than right, which may represent pulmonary infarcts. There is no pneumothorax. The heart size is normal. No pericardial effusion is present. Evaluation for adenopathy is limited due to the phase of contrast. No bulky adenopathy is seen.. There is reflux of contrast into the inferior vena cava. Bone windows demonstrate spinal scoliosis and moderate degenerative changes. Procedure Note Rico Benítez MD - 02/09/2020 EXAMINATION: Computed tomography (CT) of the chest with contrast HISTORY: R06.00: Dyspnea on exertion R06.02: SOB (shortness of breath) TECHNIQUE: CT of the chest was performed following the uneventful administration of 75 mL of Isovue-370 intravenous contrast according toa pulmonary embolism protocol. COMPARISON: No prior study is available for comparison. FINDINGS: Bilateral pulmonary emboli involving the left and right main pulmonary arteries extending to some distal segmental arteries in the right andleft upper and lower lobes, left greater than right. The main pulmonaryartery is normal in course and caliber. There is a left-sided aortic arch. The aorta and main pulmonary arteries are normal in course and caliber. There are scattered areas of mild to moderate atelectasis bilaterally. There is a trace left pleural effusion. There are areas of peripheral opacity in both lungs, left greater than right, which may represent pulmonary infarcts. There is no pneumothorax. The heart size is normal. No pericardial effusion is present. Evaluation for adenopathy is limited due to the phase of contrast. No bulky adenopathy is seen.. There is reflux of contrast into the inferior vena cava. Bone windows demonstrate spinal scoliosis and moderate degenerative changes. IMPRESSION: 1. Bilateral pulmonary emboli involving the left and right mainpulmonary arteries extending to segmental arteries bilaterally, left greater than right. 2. Trace left pleural effusion. 3. Peripheral pulmonary opacities, left greater than right, mayrepresent pulmonary infarcts. Mild to moderate atelectasis. Findings discussed with MIRA Constantino by Dr. Dalton at 5:39PM on 02/09/20 Dictated by Russell Minor MD (radiology manager). I, Dr. RICO BENÍTEZ MD have personally reviewed and interpreted this examination/study. This report was electronically signed by RICO BENÍTEZ MD on 02/09/2020 8:39 PM . Linda Constantino HYDROELECTRIC PRODUCTION TECHNICIAN-HADOOP APPLICATION DEVELOPER CT ORDERABLES * (ABNORMAL) B-TYPE NATRIURETIC PEPTIDE (02/09/2020 3:57 PM CDT) BNP 655(H) See Comment pg/mL 02/09/2020 4:40 PM CDT [facility] Comment: A decision threshold of 100 pg/mL has been demonstrated to provide the maximal combination of sensitivity, specificity and predictive value for the diagnosis of congestive heart failure (CHF). Virtually all patients with no evidence of CHF have BNP values less than 100 pg/mL. A BNP value greater than 100 pg/mL is consistent with the diagnosis of CHF in the appropriate clinical setting. In a study of 693 patients (male and female) with diagnosed CHF, the following values were determined based on the NYHA functional classification system: NYHA Functional Class Mean Valule (pg/mL) % >100 pg/mL I 320 58.1 II 432 73.0 III 656 79.0 IV 1635 98.3 Blood BLOOD SPECIMEN / Unknown Venipuncture / Unknown 02/09/2020 3:57 PM CDT 02/09/2020 4:11 PM CDT Farrah Figueroa MD LAB - CHEMISTRY ISAC LUO [facility] [address] [place] [id number], [facility] [phone] Care Teams Fixer Boarding Room Relationship Specialty Start Date End Date Richard Canas MD [address] [address] PCP - General Internal Medicine 02/09/20
--- OUTSIDE RECORDS SUMMARY | 2024-06-06 07:02 | XMS_ITS | Referral Summary ---
Author Organization [facility] Address [address] [place] [address] Care Team Providers Care Senior Wind Turbine Technician Name Role Phone Richard Canas MD Primary Care Provide r Allergies No known active allergies Medications calcium carbonate-vitam in D3 (CALCIUM 500 + D) 1,250mg (500mg elemental) - 200 units per tablet TAKE TABLET DAILY 1000mg Active polycarbophil (FIBER-CAPS, CA POLYCARBOPHIL,) 625 mg tablet daily Active GELATIN ORAL daily Active cephalexin (KEFLEX) 500 mg capsule TK ONE C PO Q 12 H 0 9 Active cholecalciferol (VITAMIN D-3) 10,000 unit tablet daily Active gdcya-in-1-dha- bdr-guoauoe-mvh (KRILL OIL) 1,387-387-49-80 mg capsule Active mupirocin (BACTROBAN) 2 % ointment mupirocin 2 % topical ointment Active dd-bfjfban-nkh- iron fm-FA-vitK (MULTI FOR HER) 18 mg iron-600 mcg-80 mcg tablet daily Active naproxen (ANAPROX,ALEVE) 220 mg tablet every 12 hours A ctive simvastatin (ZOCOR) 10 mg tablet TK 1 T PO D 0 Active apixaban (ELIQUIS) 5 mg tablet Take 5 mg by mouth 2 (two) times a day 0 Active Active Problems Problem Noted Date Diagnosed Date History of breast cancer 11/19/2020 Malignant neoplasm of right breast in female, estrogen receptor positive 03/24/2020 Encounter for screening mamm ogram for malignant neoplasm of breast 09/06/2018 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 1 05/06/2017 Overview (03/06/2018): History of carcinoma in situ of breast - (Added by TW Cliff) Social History Tobacco Use Types Packs/Day Years Used Date Smoking Tobacco: Former Tobacco Cessation:Counseling Given: Not Answered Comments No Sex and Gender Information Value Date Recorded Sex Assigned at Not on file Legal Sex Female 5:18 AM FUSE MAKER Gender Identity Female 03/12/2020 8:30 PM FUSE MAKER Sexual Orientation Not on file Last Filed Vital Signs Vital Sign Reading Time Taken Comments Blood Pressure 124/75 03/25/2020 8:40 AM FUSE MAKER Pulse 106 03/25/2020 8:40 AM FUSE MAKER Temperature 36.6 C (97.9 F) 03/25/2020 8:40 AM FUSE MAKER Respiratory Rate 20 03/25/2020 8:38 AM FUSE MAKER Oxygen Saturation 96% 03/25/2020 8:40 AM FUSE MAKER Inhaled Oxygen Concentration - - Weight 73.5 kg (162 lb) 12/15/2022 9:19 AM CDT Height 158.8 cm (5' 2.5 ) 12/15/2022 9:19 AM CDT Body Mass Index 29.16 12/15/2022 9:19 AM CDT Plan of Treatment Not on file Procedures Procedure Name Priority Date/Time Associated Diagnosis Comments BONE MINERAL DENSITY 12/29/2016 from Last 3 Months or Most Recently Relevant to Health Maintenance Results * BONE MINERAL DENSITY (12/29/2016) Anatomical Region Laterality Modality Radiographic Gaby ging Narrative 12/29/2016 Ordered by an unspecified provider. Historical Provider MD [place] DXA PROCEDURES Final Result from Last 3 Months or Most Recently Relevant to Health Maintenance Insurance MEDICARE FOR LIFE MEDICARE FOR LIFE MEDICARE [facility] FOR LIFE Advance Directives For more information, please contact: [phone] Documents on File Type Date Recorded Patient Rag Washer Expl anation ADVANCE DIRECTIVE 04/01/2020 2:30 PM KACIE Engel WILL Care Teams Senior Wind Turbine Technician Relationship Specialty Start Date End Date Richard Canas MD [address] [place] [address] PCP - General 08/09/17
--- OUTSIDE RECORDS SUMMARY | 2024-06-06 07:02 | XMS_ITS | Clinical Summary ---
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 - (Added by TW Conv) Social History Tobacco Use Types Packs/Day Years Used Date Smoking Tobacco: Former Tobacco Cessation:Counseling Given: Not Answered Comments No Sex and Gender Information Value Date Recorded Sex Assigned at Not on file Legal Sex Female 5:18 AM FISHER SPONGE HOOKING Gender Identity Female 03/12/2020 8:30 PM FISHER SPONGE HOOKING Sexual Orientation Not on file Obstetrics History Last Filed Vital Signs Vital Sign Reading Time Taken Comments Blood Pressure 124/75 03/25/2020 8:40 AM FISHER SPONGE HOOKING Pulse 106 03/25/2020 8:40 AM FISHER SPONGE HOOKING Temperature 36.6 C (97.9 F) 03/25/2020 8:40 AM FISHER SPONGE HOOKING Respiratory Rate 20 03/25/2020 8:38 AM FISHER SPONGE HOOKING Oxygen Saturation 96% 03/25/2020 8:40 AM FISHER SPONGE HOOKING Inhaled Oxygen Concentration - - Weight 73.5 kg (162 lb) 12/15/2022 9:19 AM CDT Height 158.8 cm (5' 2.5 ) 12/15/2022 9:19 AM CDT Body Mass Index 29.16 12/15/2022 9:19 AM CDT Plan of Treatment Health Maintenance Due Date Last Done Comments Depression Screening 1943 Fall Risk Assessment 1945 Hepatitis B Screening 1961 Zoster Vaccine (1 of 2) 1993 Well Visit 65+ 01/16/2008 Pneumococcal vaccine 65+ (2 of 2 - PPSV23 or PCV20) 02/20/2018 02/20/2017 Osteoporosis Screening-Bone Density Scan 12/29/2018 12/29/2016, 07/02/2014, 06/30/2012 DTaP/Tdap/Td Vaccine (2 - Td or Tdap) 05/23/2023 05/23/2013 Influenza Vaccine (#1) 2023 0, 01/31/2019, 01/31/2019, Additional history exists Procedures Procedure Name Priority Date/Time Associated Diagnosis [...] Recently Relevant to Health Maintenance Insurance MEDICARE [place] [employer] MEDICARE FOR LIFE MEDICARE FOR LIFE Advance Directives For more information, please contact: [phone] Documents on File Type Date Recorded Patient Awning Hanger Expl anation ADVANCE DIRECTIVE 04/01/2020 2:30 PM KACIE Engel WILL Care Teams Specialist Icu Relationship Specialty Start Date End Date Richard Canas MD [address] [place], [place] [phone] PCP - General 08/09/17
--- OUTSIDE RECORDS SUMMARY | 2024-06-06 07:02 | XMS_ITS ---
Author Organization [facility] Address [address] [place] [address] Care Team Providers Care Breakfast Supervisor Name Role Phone Richard Canas MD Primary Care Provider [phone] Active Problems Problem Noted Date Diagnosed Date Shock 02/11/2020 Hormone receptor positive breast cancer 02/11/20 20 Acute pulmonary embolism with acute cor pulmonal e 02/09/2020 Dyspnea on exertion Acute deep vein thrombosis ( DVT) of femoral vein of right lower extremity Current Oncology Plans No current plan information found. Past Plans No past plan information found. Radiation Treatments * No radiation treatments are documented for this patient in [facility]. Treatments may have been administered in another system. Lifetime Dose Tracking * Chemical Lifetime Dose Automatic Entry Manual Entr y Dose Length Product 145 mGy-cm 145 mGy-cm 0 mGy-cm
--- OUTSIDE RECORDS SUMMARY | 2024-06-06 07:02 | XMS_ITS | Referral Summary ---
Author Organization [facility] Address [address] [place] [address] Care Team Providers Care Sap Senior Developer Name Role Phone Richard Canas MD Primary Care Provider [phone] Source Comments [facility],non-owned Affiliates and Associated Physician Practices is amultiple site organization consisting of ambulatory clinics and hospital sitesin [place], [place] and [place]. This disclosure is being madepursuant to the Care Everywhere program and may not contain all information available regarding this patient. Last updated 18.[facility] Allergies No known active allergies Medications * [...] Immunizations Name Administration Dates Next Due John SkyStem primary monoval ent 12+ yr 0.3mL Purple cap 06/29/2020,06/08/2020 INFLUENZA VACCINE 02/09/2020, 8,02/20/2017,2015,02/18/2014 INFLUENZA VACCINE, ADJUVANTE D, QUADR. (FLUAD QUADRIVALENT; 65Y+) (AIIV4) 01/20/2021 INFLUENZA VACCINE, CELL CULT URE, QUADR. (FLUCELVAX QUADRIVALENT; 6MO+) (CCIIV4) 01/31/2019 INFLUENZA VACCINE, HIGH-DOSE , QUADR. (FLUZONE HIGH-DOSE QUADRIVALENT; 65Y+), 0.7 ML (HD-IIV4) 01/09/2018 Pneumococcal Pcv13 Conj 02/20/2017 TDAP (7yrs+) 05/23/2013 Social History Tobacco Use Types Packs/Day Years Used Date Smoking Tobacco: Former Cigarettes 1 11 4 1974 Smokeless Tobacco: Never Alcohol Use [...] Sex Assigned at Female 04/17/2021 1:50 PM SCALP TREATMENT OPERATOR Gender Identity Female 04/17/2021 1:50 PM SCALP TREATMENT OPERATOR Sexual Orientation Choose not to disclose 2020 1:50 PM SCALP TREATMENT OPERATOR Last Filed Vital Signs Vital Sign Reading [...] Mass Index 29.18 02/26/2023 2:22 PM CDT Functional Status Functional Status Response Date of Assess ment Is person deaf or have serious hearing difficult y? No 02/14/2020 Is person blind or have serious difficulty seein g? No 02/14/2020 Does person have serious dif ficulty walking/climbing stairs? No 02/14/2020 Does person have difficulty dressing/bathing? No 02/14/2020 Does person have difficulty doing errands alone? No 02/14/2020 Cognitive Status Response Date of Assessm ent Does person have difficulty concentrating/remembering/making decisions? No 02/14/2020 Plan of Treatment Not on file Advance Directives Documents on File Type Date Recorded Patient Felt Hooker Expl anation Adv Directive/Living Will/POA 02/16/2020 6:06 [...] orders without asking attending physician. Care Teams Sap Senior Developer Relationship Specialty Start Date End Date Richard Canas MD [address] [place] [id number] PCP - General Internal Medicine 02/09/20
--- OUTSIDE RECORDS SUMMARY | 2024-06-06 07:03 | XMS_ITS | Continuity of Care Document ---
Author Name [facility] Organization [facility] Care Team Providers Care Crtt Name Role Phone [facility] Unavailable Unavailable Problems Combined list of problems from Department of Defense and Veterans Affairs facilities. It does not include entries that were removed or entered in error. Problem Status Onset Date Problem Type Date of Resolution Comments Source hyperlipidemia Active Condition lipid s up but we'll let her go off for 3 mos and see how she does - re chk in 3 mos - cont diet/exercise DoD refractive error - myopia Active Condition DoD astigmatism Active Condition DoD vitreous floaters Active Condition DoD presbyopia Active Condition DoD visit for: screening malignant neoplasm colon Inactive Condition DoD routine gynecological exam with cervical pap smear Active Condition DoD visit for: screening exam malignant neoplasm breast Inactive Condition DoD routine history and physical Inactive Condition discussed exercise, calcium supplements DoD joint pain, localized in the knee Active Condition DoD synovial cyst of popliteal space Active Condition f/u with ort ho on the Mar. DoD thigh strain left Inactive Condition DoD Other Physical Therapy Inactive Condition DoD Parent Education: Active Condition Pt takes 1 MVI and one Calcium supp daily plus Milk, yogurt, and other high calcium productsPt aware of need for high calcium intakeWill do a bone scan when pt turns 63 DoD skin: rash [as Sx] Inactive Condition P t has a skin rash on both ankle areas with is slightly erythematous and dry. Left leg has small 3cm by 4cm area and right leg has large 10cm by 7 cm area. Looks like contact dermatitis, appears to be healing.Will give pt hydrocortisone cream to hel DoD patellar chondromalacia Active Condition DoD joint pain in the toes Active Condition New dx of chron ic not well controlled condition. Refill Naprosyn. Can take tylenol OTC as well. Pt does not want stronger pain meds. Will get x-ray of foot to r/o arthritis and gout. DoD seborrheic dermatitis Active Condition selsun shampoo to areas bid for 1 week, then prnOK to use cortisone cream OTC on the areas for a few days, then stopmight still be seeing some inflammation from where these areas were treated with LN cryotherapy a few weeks ago, so pt will f/u in a fe DoD actinic keratosis Active Condition cr yo x 1 today; pt has no strong h/o skin cancer but will f/u for complete skin check. 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 Medication Details Route Status Patient Instructions Prescription Expires Prescription Number Last Dispense Date Ordering Provider Order Date Order Qty Source ALENDRONATE SODIUM (alendronat e sodium), 70 MG, TABLET, ORAL, [facility], 4 ea. BLIST PACK Active [id number] 2023 12 Pharmac y Data Transac tion Service Facilit y ELIQUIS (APIXABAN), 5 MG, TABLET, ORAL, [facility] , 60 ea. BOTTLE Active [id number] 4 2023 180 Pharmac y Data Transac tion Service Facilit y ELIQUIS (APIXABAN), 5 MG, TABLET, ORAL, [facility] , 60 ea. BOTTLE Active [id number] 4 2023 180 Pharmac y Data Transac tion Service Facilit y Allergies, Adverse Reactions, Alerts Combined list of allergies from Department of Defense and Veterans Affairs facilities. It does not include entries that were removed or entered in error. Substance Category Reaction Severity Reaction type Status Date Reported Comments Source NO OUTPUT FOR NCID [id number] Drug allergy (disorder) active 09/15/2007 [employer] Deepak MEYER [place] [place] Immunizations Combined list of available immunizations from the Department of Defense and Veterans Affairs facilities. Immunization Series Date Given Administered By Site Reaction Lot Number CVX Code Drug Information Engineer Status Comments Source Influenza, injectable, MDCK, preservative free, quadrivalent 2018 ALUL, () Not Given Influenza , injectabl e, MDCK, preservat donavon free, quadrival ent DoD Influenza, high dose seasonal 2015 ALUL, () Not Given Influenza , high dose seasonal DoD Encounters Combined list of: 1) Encounters from Department of Veterans Affairs facilities going backup to the last 18 months, not all VA inpatient encounters are included; 2) Encounters from the Department of Defense facilities going backup to 280 months. Location Location Details Encounter Type Encounter Number Reason For Visit Attending Provider ADM Date DC Date Status Disposition Source [address] [place] [address] Deepak MEYER [place] [place] upational Therapy) OUTPATIENT [id number] INGRID PÉREZ R 03/31 Released w/o Limitations [address] [place] [address] Deepak MEYER [facility] [place]O ccupati onal Therapy ) [address] [place] [address] Deepak MEYER [facility] [place]Ot Neuromusc uloskelet al Clinic) OUTPATIENT [id number] carpal tunnel syndrom e, dequerv an's tenosyn ovitis RANI GUERRERO 03/31 Released with Work/Duty Limitations [address] [place] [address] Deepak MEYER [place] [place] t Neuromu sculosk eletal Clinic) [address] [place] [address] Deepak MEYER [facility] [place]Occ upational Therapy) OUTPATIENT [id number] INGRID PÉREZ R 04/22 Released w/o Limitations [address] [place] [address] Deepak MEYER [place] [place] ccupati onal Therapy [place] [address] [place] [address] Deepak MEYER [facility] [place]Occ upational Therapy) OUTPATIENT [id number] f/u progres s outr of splint INGRID PÉREZ R 05/13 Released w/o Limitations [address] [place] [address] Deepak MEYER [place] [place]cup[place] onal Therapy ) [address] [place] [address] Deepak MEYER [facility] [place]Sco tt [facility] FAMRES Tm Blue) TELE CONSULT [id number] med JHON Locke 11/[address] [place] [address] Deepak MEYER [place] [place] [facility] Tm Blue) [address] [place] [address] Deepak MEYER [place] [place]Sco tt [facility] Fam Res Tm Green) OUTPATIENT [id number] blister s on nose DANIELLE MITCHELL 01/07 Released w/o Limitations [address] [place] [address] Deepak MEYER [place] [place]S [place] [facility] Fam Res Tm Green) [address] [place] [address] Deepak MEYER [place] [place]Sco tt [facility] FAMRES Tm Blue) OUTPATIENT [id number] derm check on nose HUONG MOLINA 02/05 Released w/o Limitations [address] [place] [address] Deepak MEYER [place] [place] [facility] FAM[facility] Tm Blue) [address] [place] [address] Deepak MEYER [place] [place]Sco tt [facility] FAM[facility] Tm Blue) OUTPATIENT [id number] left toe problem JOLIE Romero, MICHELINE 05/14 Released w/o Limitations [address] [place] [address] Deepak MEYER [place] [place] [facility] FAM[facility] Tm Blue) [address] [place] [address] Deepak MEYER [place] [place]Sco tt [facility] FAM[facility] Tm Blue) OUTPATIENT [id number] knee pain JOLIE Romero, MICHELINE 08/16 Released w/o Limitations [address] [place] [address] Deepak MEYER ([facility] [place] [facility] FAM[facility] Tm Blue) [address] [place] [address] Deepak MEYER [place] [place] - Orthoped[place] cs[place] OUTPATIENT [id number] simple cyst of the left knee FLORENCIA HARRIS 09/06 Released w/o Limitations [address] [place] [address] Deepak MEYER ([facility] [place] A - Orthope dics) [address] [place] [address] Deepak MEYER [place] [place] - Orthoped[place] cs[place] OUTPATIENT [id number] f/u left knee, PATSY Fragoso 10/11 Released w/o Limitations [address] [place] [address] Deepak MEYER [place] [place] - Orthope dics) [address] [place] [address] Deepak MEYER [place] [place] - [place]i ) OUTPATIENT [id number] f/u left knee, PATSY Fragoso 11/02 Released w/o Limitations [address] [place] [address] Deepak MEYER ([facility] [place] A - Orthope dics) [address] [place] [address] Deepak MEYER [place] [place]Sco tt [facility] Fam Res Tm Green) OUTPATIENT [id number] rash x 2 months JENNIFER GUZMAN 01/04 Released w/o Limitations [address] [place] [address] Deepak MEYER ([facility] [place]S cott [facility] Fam Res Tm Green) [address] [place] [address] Deepak MEYER [place] [place]co tt [facility] Fam Res Tm Green) OUTPATIENT [id number] F/U ON CHOLEST ARIANA JENNIFER GUZMAN 02/08 Released w/o Limitations [address] [place] [address] Deepak MEYER [place] [place]S cott [facility] Fam Res Tm Green) [address] [place] [address] Deepak MEYER [place] [place] - Orthoped[place]) OUTPATIENT [id number] f/u cyst lt knee mwj NEVA PATSY R M 02/28 Released w/o Limitations [address] [place] [address] Deepak MEYER [place] [place] - Orthope dics) [address] [place] [address] Deepak MEYER [place] [place]Phy sical Therapy) OUTPATIENT [id number] distal thigh pain ELLE JOHNSON 03/02 Released w/o Limitations [address] [place] [address] Deepak MEYER [place] [place]P hysical Therapy ) [address] [place] [address] Deepak MEYER [place] [place]Phy sical Therapy) OUTPATIENT [id number] VIRGIE SALAZAR 03/08 Released w/o Limitations [address] [place] [address] Deepak MEYER ([facility] [place]P hysical Therapy ) [address] [place] [address] Deepak MEYER [place] [place]Sco tt [facility] FAMRES Tm Blue) OUTPATIENT [id number] chronic changes in calf, U/s no DVT JAMES BRANDON 03/23 Released w/o Limitations [address] [place] [address] Deepak MEYER [facility]S cott [facility] Tm Blue) [address] [place] [address] Deepak MEYER [facility]Sco tt [facility] FAMRES Tm Blue) TELE CONSULT [id number] Note for ST Disabil ity Change Request JAMES BRANDON 03/[address] [place] [address] Deepak MEYER ([facility]S [place] [facility] Tm Blue) [address] [place] [address] Deepak MEYER [place] [place]Sco tt [facility] FAM[facility] Tm Blue) OUTPATIENT [id number] pap smear HUONG MOLINA 04/13 Released w/o Limitations [address] [place] [address] Deepak MEYER ([facility] [place]S cott [facility] FAM[facility] Tm Blue) [address] [place] [address] Deepak MEYER [facility] [place]Opt ometry) OUTPATIENT [id number] Eye exam XOCHILT GIVENS 04/26 Released w/o Limitations [address] [place] [address] Deepak MEYER ([facility] [place]O ptometr y) [address] [place] [address] Deepak MEYER [place] [place]Sco tt [facility] Fam Res Tm Green) TELE CONSULT [id number] med JENNIFER Boyd 06/[address] [place] [address] Deepak MEYER ([facility] [place]S [place] [facility] Fam Res Tm Green) [address] [place] [address] Deepak MEYER [place] [place]Sco tt [facility] Fam Res Tm Green) TELE CONSULT [id number] med HUONG Tamayo 10/[address] [place] [address] Deepak [facility]S cott [facility] Fam Res Tm Green) [address] [place] [address] Deepak [facility]Sco tt [facility] Fam Res Tm Green) OUTPATIENT [id number] f/u cholest JENNIFER Horan 12/12 Released w/o Limitations [address] [place] [address] Deepak [facility]S cott [facility] Fam Res Tm Green) [address] [place] [address] Deepak [facility]Sco tt [facility] Fam Res Tm Green) OUTPATIENT [id number] NUMBNES S IN HANDS MORGAN TRAORE 08/16 Released w/o Limitations [address] [place] [address] Deepak [facility]S [facility] Res Tm Green) [address] [place] [address] Deepak [facility])(Occ upational Therapy) OUTPATIENT [id number] CARPAL TUNNEL SYNDROM E KARLA RUSHING 08/21 Released w/o Limitations [address] [place] [address] Deepak [facility])(O ccupati onal Therapy ) [address] [place] [address] Deepak B [facility])(Occ upational Therapy) OUTPATIENT [id number] INGRID LIM 08/23 Released w/o Limitations [address] [place] [address] Deepak [facility])(O ccupati onal Therapy ) [address] [place] [address] Deepak [facility])(Occ upational Therapy) OUTPATIENT [id number] KARLA RUSHING 09/12 Released w/o Limitations [address] [place] [address] Deepak [facility]O ccupati onal Therapy ) [address] [place] [address] Deepak [facility]Sco tt [facility] Fam Res Tm Green) TELE CONSULT [id number] JENNIFER Page 09/[address] [place] [address] [employer]ak [employer] [facility]S [facility] Fam Res Tm Green) Procedures Combined list of: 1) Procedures from Department of Veterans Affairs facilities going back up to thelast 18 months, not all VA non-surgical procedures are included; 2) All procedures from the Department of Defense facilities. Procedure Procedure Type Code Date Perfomer Comments [facility] OCCUPATIONAL THERAPY RE-EVALUATION 09/13/19 08 [facility] SPLINT SUPPLIES, MISCELLANEOUS (INCLUDES THERMOPLASTICS, STRAPPING, FASTENERS, PADDING AND OTHER SUPPLIES) 08/24/19 08 [facility] THERAPEUTIC PROCEDURE, 1 OR MORE AREAS, EACH 15 MINUTES; THERAPEUTIC EXERCISES TO DEVELOP STRENGTH AND ENDURANCE, RANGE OF MOTION AND FLEXIBILITY 08/22/19 08 [facility] DETERMINATION OF REFRACTIVE STATE 04/26/19 07 [facility] SCREENING PAPANICOLAOU SMEAR; OBTAINING, PREPARING AND CONVEYANCE OF CERVICAL OR VAGINAL SMEAR TO LABORATORY 04/13/20 06 [facility] THERAPEUTIC PROCEDURE, 1 OR MORE AREAS, EACH 15 MINUTES; THERAPEUTIC EXERCISES TO DEVELOP STRENGTH AND ENDURANCE, RANGE OF MOTION AND FLEXIBILITY 03/08/20 06 [facility] APPLICATION OF A MODALITY TO 1 OR MORE AREAS; DIATHERMY (EG, MICROWAVE) 03/02/20 06 [facility] ARTHROCENTESIS, ASPIRATION AND/OR INJECTION, INTERMEDIATE JOINT OR BURSA (EG, TEMPOROMANDIBULAR, ACROMIOCLAVICULAR, WRIST, ELBOW OR ANKLE, OLECRANON BURSA); WITHOUT ULTRASOUND GUIDANCE 10/12/19 06 [facility] DESTRUCTION (EG, LASER SURGERY, ELECTROSURGERY, CRYOSURGERY, CHEMOSURGERY, SURGICAL CURETTEMENT), PREMALIGNANT LESIONS (EG, ACTINIC KERATOSES); FIRST LESION 01/08/20 05 [facility] SELF-CARE/HOME MANAGMENT TRAIN (EG,ACT OF DAILY LIVING (ADL) &COMPENSAT TRAIN,MEAL PREPARATION,SAFETY PROCS,AND INSTRUCT IN USE OF ASST TECHNOLOGY DEV/ADPT EQUIP) DIR ONE-ON-ONE CONT,EA 15 MINUTES 05/13/19 05 [facility] SELF-CARE/HOME MANAGMENT TRAIN (EG,ACT OF DAILY LIVING (ADL) &COMPENSAT TRAIN,MEAL PREPARATION,SAFETY PROCS,AND INSTRUCT IN USE OF ASST TECHNOLOGY DEV/ADPT EQUIP) DIR ONE-ON-ONE CONT,EA 15 MINUTES 04/22/20 04 [facility] APPLICATION OF SHORT ARM SPLINT (FOREARM TO HAND); STATIC 03/31/20 04 [facility] OCCUPATIONAL THERAPY EVALUATION 03/27/20 04 [facility] SCREENING PAPANICOLAOU SMEAR; OBTAINING, PREPARING AND CONVEYANCE OF CERVICAL OR VAGINAL SMEAR TO LABORATORY 02/28/20 03 [facility] NONINVASIVE EAR OR PULSE OXIMETRY FOR OXYGEN SATURATION; SINGLE DETERMINATION 06/26/19 03 [facility] Occupational Therapy Re-Evaluation Occupational Therapy Re-Evaluation 84825 09/13/19 08 KARLA RUSHING [facility] Splint supplies, miscellaneous (includes thermoplastics, strapping, fasteners, padding and other supplies) 08/24/19 08 INGRID LIM Wrist-hand orthosis, without joints, may include soft interface, straps, custom fabricated, includes fitting and adjustment 08/24/19 08 INGRID LIM isted Exercises For ROM Assisted Exercises For ROM 58884 08/22/19 08 KARLA RUSHING Occupational Therapy Evaluation Occupational Therapy Evaluation 33885 08/22/19 08 KARLA RUSHING Ophthalmological New Patient Start Comprehensive Care Ophthalmological New Patient Start Comprehensive Care 54055 04/26/19 07 XOCHILT GIVENS Visual Bernal Test Intermediate Examination Visual Bernal Test Intermediate Examination 16469 04/26/19 07 XOCHILT GIVENS Determination Of Refractive State Determination Of Refractive State 30540 04/26/19 07 XOCHILT GIVENS Screening papanicolaou smear; obtaining, preparing and conveyance of cervical or vaginal smear to laboratory 04/13/20 06 HUONG MOLINA Modalities Diathermy Treatment 03/08/20 06 VIRGIE SALAZAR Physical Therapy: ___ Se ion Segments, 15 Minutes Each Physical Therapy: ___ Session Segments, 15 Minutes Each 85455 03/08/20 06 VIRGIE SALAZAR Physical Therapy Service Evaluation Physical Therapy Service Evaluation 35248 03/02/20 06 ELLE JOHNSON Physical Therapy Mobilization Joint Physical Therapy Mobilization Joint 22659 03/02/20 06 ELLE JOHNSON Modalities Diathermy Treatment 03/02/20 06 ELLE JOHNSON Joint Aspiration (Diagnostic) Joint Aspiration (Diagnostic) 01690 10/14/19 06 SOPHIE HOOKS [facility] Destruction Of Benign Lesion By Cryosurgery 01/08/20 05 DANIELLE MITCHELL [facility] Patient Training And Self-Care Skills Patient Training And Self-Care Skills 18615 05/14/19 05 INGRID ESCOBAR Orthopedic Splinting Short Arm Orthopedic Splinting Short Arm 82456 04/23/20 04 INGRID ESCOBAR Patient Training And Self-Care Skills Patient Training And Self-Care Skills 72317 04/23/20 04 INGRID ESCOBAR Orthopedic Splinting Short Arm Orthopedic Splinting Short Arm 00137 04/01/20 04 INGRID ESCOBAR Patient Training And Self-Care Skills Patient Training And Self-Care Skills 56583 04/01/20 04 INGRID ESCOBAR [facility] Occupational Therapy Evaluation Occupational Therapy Evaluation 60097 03/31/20 04 RANI GUERRERO [facility] Social History Combined list of available smoking, tobacco, and other social history from Department of Defense and Veterans Affairs facilities. Social History Type Response Date Comment [facility] This section is an empty social history section. DoD
[2024-06-06 08:44] LABS: Alanine Aminotransferase 23 U/L (6-35); Albumin Level 4.1 g/dL (3.5-5.1); Alkaline Phosphatase 103 U/L (38-126); Anion Gap 12 mmol/L (4-12); Aspartate Amino Transferase 33 U/L (14-36); Bilirubin,Total 0.4 mg/dL (0.2-1.3); Blood Urea Nitrogen 19 mg/dL (7-17); Calcium 9.2 mg/dL (8.4-10.2); Carbon Dioxide 24 mmol/L (22-30); Chloride 105 mmol/L (98-107); Cholesterol 236 mg/dL (0-200); Estimated Glomerular Filt Rate > 60; Glucose 90 mg/dL (65-110); HDL Direct 39 mg/dL; Potassium 4.1 mmol/L (3.4-5.0); Sodium 141 mmol/L (137-145); Triglycerides 136 mg/dL (<150)
[2024-06-06 08:54] LABS: LDL Cholesterol Direct 163 mg/dL
[2024-06-06 09:04] LABS: Vitamin D 25 Hydroxy 63.8 ng/mL
== END 2024-06-06 06:56 | disposition home or self-care (01) ==
PROVIDERS: PCP Emergency Medicine; Visit Provider Emergency Medicine
DX: E55.9 Vitamin D deficiency, unspecified (principal); E78.2 Mixed hyperlipidemia
CPT/HCPCS: 36415; 80053; 80061; 82306

== ENCOUNTER 2024-07-18 11:14 | Outpatient (CLI) | payer MEDICARE, OTHER, SELFPAY ==
--- NOTE | ~2024-07-18 | XR_ITS ---
XR shoulder RT min 2V Ordering provider: Richard Canas MD History: . M25.519 - Pain in unspecified shoulder . Comparison: None. FINDINGS: BONES: No acute fracture or dislocation. JOINT SPACES: The acromioclavicular joint shows osteoarthritic changes. The glenohumeral joint is genna rowed with marginal osteophytes. SOFT TISSUES: Normal. IMPRESSION: No acute osseous abnormality right shoulder. Moderate Osteoarthritic changes of the glenohumeral and mild osteoarthritic changes of the acromiocla vicular joints. Reviewed, dictated and finalized at location A. IMPRESSION: No acute osseous abnormality right shoulder. Moderate Osteoarthritic changes of the glenohumeral and mild osteoarthritic daiana nges of the acromioclavicular joints.
--- OUTSIDE RECORDS SUMMARY | 2024-07-18 12:54 | XMS_ITS | Clinical Summary ---
Author Organization [facility] Address [address] [place] [address] Care Team Providers Care Compressor Operator Name Role Phone Unavailable Primary Care Provider [...]
--- OUTSIDE RECORDS SUMMARY | 2024-07-18 12:54 | XMS_ITS | Clinical Summary ---
Author Organization [facility] Address [address] [place] [address] Care Team Providers Care Furniture Manager Name Role Phone Richard Canas MD Primary [...] (VITAMIN D-3) 10,000 unit tablet daily Active cxwuj-gf-8-dha- pel-rnkmtno-hms (KRILL OIL) 1,172-438-37-80 mg capsule Active mupirocin (BACTROBAN) 2 % ointment mupirocin 2 % topical ointment Active ek-zyznriy-lir- iron fm-FA-vitK (MULTI FOR HER) 18 mg [...] on file Legal Sex Female 5:18 AM WIND DEVELOPMENT DIRECTOR Gender Identity Female 03/12/2020 8:30 PM WIND DEVELOPMENT DIRECTOR Sexual Orientation Not on file Obstetrics History Last Filed Vital Signs Vital Sign Reading Time Taken Comments Blood Pressure 124/75 03/25/2020 8:40 AM WIND DEVELOPMENT DIRECTOR Pulse 106 03/25/2020 8:40 AM WIND DEVELOPMENT DIRECTOR Temperature 36.6 C (97.9 F) 03/25/2020 8:40 AM WIND DEVELOPMENT DIRECTOR Respiratory Rate 20 03/25/2020 8:38 AM WIND DEVELOPMENT DIRECTOR Oxygen Saturation 96% 03/25/2020 8:40 AM WIND DEVELOPMENT DIRECTOR Inhaled Oxygen Concentration - - Weight 73.5 [...] Pneumococcal vaccine 65+ (2 of 2 - PPSV23) 02/20/2018 02/20/2017 Osteoporosis Screening-Bone Density Scan 12/29/2018 [...] Narrative 12/29/2016 Ordered by an unspecified provider. us Historical Provider MD [place] DXA PROCEDURES Final Result from Last 3 Months or Most Recently Relevant to Health Maintenance Insurance MEDICARE FOR LIFE MEDICARE FOR LIFE MEDICARE FOR LIFE Advance Directives For more information, please contact: [phone] Documents on File Type Date Recorded Patient Commercial Plumber Expl anation ADVANCE DIRECTIVE 04/01/2020 2:30 PM KACIE Engel WILL Care Teams Furniture Manager Relationship Specialty Start Date End Date Richard Canas MD [address] [place] [address] PCP - General 08/09/17
--- OUTSIDE RECORDS SUMMARY | 2024-07-18 12:54 | XMS_ITS | Clinical Summary ---
Author Organization [facility] Address [address] [place] [address] Care Team Providers Care Biomedical Scientist Name Role Phone Richard Canas MD Primary Care Provider [phone] Source Comments [facility],non-owned Affiliates and Associated Physician Practices is amultiple site organization consisting of ambulatory clinics and hospital sitesin [place], [place], [place] and [place]. This disclosure is being madepursuant to the Care Everywhere program and may not contain all information available regarding this patient. Last updated 18.[facility] [employer] Allergies No known active allergies Medications * [...] Immunizations Name Administration Dates Next Due John Pulsar primary monoval ent 12+ yr 0.3mL Purple [...] Sex Assigned at Female 04/17/2021 1:50 PM REMITTANCE CLERK Gender Identity Female 04/17/2021 1:50 PM REMITTANCE CLERK Sexual Orientation Choose not to disclose 2020 1:50 PM REMITTANCE CLERK Last Filed Vital Signs Vital Sign Reading [...] complete this topic MENINGOCOCCAL (Group B) VACCINE SHARED DECISION-MAKING Aged Out No longer eligible based on patient's age to complete this topic MENINGOCOCCAL GROUPS A/C/Y/W VACCINE Aged Out No longer eligible based on patient's age to complete this topic Advance Directives Documents on File Type Date Recorded Patient Accounts Payable Professional Expl anation Adv Directive/Living Will/POA 02/16/2020 6:06 [...] orders without asking attending physician. Care Teams Biomedical Scientist Relationship Specialty Start Date End Date Richard Canas MD [address] [place] [address] [address] [place], [place] [id number] PCP - General Internal Medicine 02/09/20
--- OUTSIDE RECORDS SUMMARY | 2024-07-18 12:54 | XMS_ITS ---
Author Organization [facility] Address [address] [place] [address] Care Team Providers Care New Accounts Clerk Name Role Phone Richard Canas MD Primary Care Provider [phone] Active Problems Problem Noted Date Diagnosed Date [...] treatments are documented for this patient in [facility]. Treatments may have been administered in another system. Lifetime Dose Tracking * Chemical Lifetime Dose Automatic Entry Manual Entr y Dose Length Product 145 mGy-cm 145 mGy-cm 0 mGy-cm
--- OUTSIDE RECORDS SUMMARY | 2024-07-18 12:54 | XMS_ITS | Referral Summary ---
Author Organization 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 Gender Identity Female 03/12/2020 8:30 PM GLASS RIBBON MACHINE OPERATOR Sexual Orientation Not on file Last Filed Vital Signs Vital Sign Reading Time Taken Comments Blood Pressure 124/75 03/25/2020 8:40 AM GLASS RIBBON MACHINE OPERATOR Pulse 106 03/25/2020 8:40 AM GLASS RIBBON MACHINE OPERATOR Temperature 36.6 C (97.9 F) 03/25/2020 8:40 AM GLASS RIBBON MACHINE OPERATOR Respiratory Rate 20 03/25/2020 8:38 AM GLASS RIBBON MACHINE OPERATOR Oxygen Saturation 96% 03/25/2020 8:40 AM GLASS RIBBON MACHINE OPERATOR Inhaled Oxygen Concentration - - Weight 73.5 [...] LIFE MEDICARE FOR LIFE MEDICARE [facility] FOR LIFE Advance Directives For more information, please contact: [phone] Documents on File Type Date Recorded Patient Liquor Department Manager Expl anation ADVANCE DIRECTIVE 04/01/2020 2:30 PM KACIE Engel WILL Care Teams Voicer Relationship Specialty Start Date End Date Richard Canas MD [address] [place] [address] PCP - General 08/09/17
== END 2024-07-18 11:15 | disposition home or self-care (01) ==
LOC: ANHIMG 11:20
PROVIDERS: PCP Emergency Medicine; Visit Provider Emergency Medicine
DX: M19.011 Primary osteoarthritis, right shoulder (principal)
CPT/HCPCS: 73030

== ENCOUNTER 2024-08-01 08:50 | Outpatient (CLI) | payer MEDICARE, OTHER, SELFPAY ==
--- NOTE | ~2024-08-01 | MR_ITS ---
MRI of the right shoulder Technique: Axial proton-density fat-sat images, coronal proton density fat-sat and T2 fat-sat images, and sagittal T1-weighted and T2 fat-sat images were acquired. Clinical History: Pain Findings: There is severe AC joint degenerative change. There is prominent bony productive change of the acromion distal clavicle with minimal fluid in the joint space. Coracoclavicular, coracoacromial, coracohumeral ligaments appear intact. There is severe tendinosis and complete tear of the supraspinatus tendon. There is moderate infraspin atus tendinosis without definite partial or full-thickness tear. Subscapularis tendon intact with mil d tendinosis. Tendon of long head of the biceps is probably ruptured and thinned. There is superior labral tear extending to anterosuperior portion, anterior labrum at the equator, an teroinferior aspect. Probable extension of the posterior superior aspect as well. Inferior glenohumeral ligament is intact. There is moderate glenohumeral joint effusion with fluid pa ssing through the rotator cuff defect into the subacromial/subdeltoid bursa. There is moderate degene rative change of the glenohumeral joint. There is extensive glenoid chondromalacia with subchondral c ystic change. No muscle atrophy. Impression: Complete full-thickness tear of the supraspinatus tendon, as detailed above. Probable ruptured and thinned proximal long head biceps tendon. Background diffuse rotator cuff tendinosis. Extensive labral tear, including SLAP tear with additional extension to the anterior equator and ante roinferior portion of the labrum. Moderate glenohumeral joint degenerative change. Reviewed, dictated and finalized at [facility]. Impression: Complete full-thickness tear of the supraspinatus tendon, as detailed above. Probable ruptured and thinned proximal long head biceps tendon. Background diffuse rotator cuff tendinosis. Extensive labral tear, including SLAP tear with additional extension to the ant erior equator and anteroinferior portion of the labrum. Moderate glenohumeral joint degenerative change.
--- OUTSIDE RECORDS SUMMARY | 2024-08-01 09:36 | XMS_ITS | Clinical Summary ---
Author Organization [facility] Address [address] [place] [address] Care Team Providers Care Wind Turbine Technician Name Role Phone Unavailable Primary Care Provider [...] - 1-dose 75+ series) 2018 COVID-19 Vaccine ( - 2023-2 5 season) 2023 Meningococcal B Vaccine Aged Out No l onger eligible based on patient's age to complete this topic Meningococcal Vaccine Aged Out No kym yoel eligible based on patient's age to complete this topic RSV Immunizations Under 20 Months Aged Out No longer eligible based on patient's age to complete this topic
--- OUTSIDE RECORDS SUMMARY | 2024-08-01 09:36 | XMS_ITS ---
Author Organization [facility] Address [address] [place] [address] Care Team Providers Care Music Executive Name Role Phone Richard Canas MD Primary Care Provider [phone] Active Problems Problem Noted Date Diagnosed Date [...] treatments are documented for this patient in [facility]. Treatments may have been administered in another system. Lifetime Dose Tracking * Chemical Lifetime Dose Automatic Entry Manual Entr y Dose Length Product 145 mGy-cm 145 mGy-cm 0 mGy-cm
--- OUTSIDE RECORDS SUMMARY | 2024-08-01 09:36 | XMS_ITS | Clinical Summary ---
Author Organization [facility] Address [address] [facility] [place] [address] Care Team Providers Care Business Development Engineer Name Role Phone Richard Canas MD Primary Care Provider [phone] Source Comments [facility],non-owned Affiliates and Associated Physician Practices is amultiple site organization consisting of ambulatory clinics and hospital sitesin [place], [place], [place] and [place]. This disclosure is being madepursuant to the Care Everywhere program and may not contain all information available regarding this patient. 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 Care Teams Business Development Engineer Relationship Specialty Start Date End Date Richard Canas MD [address] [place] [address] [address] [place], [place] [id number] PCP - General Internal Medicine 02/09/20
== END 2024-08-01 08:51 | disposition home or self-care (01) ==
LOC: ANHIMG 08:55
PROVIDERS: PCP Emergency Medicine; Visit Provider Emergency Medicine
DX: M75.101 Unspecified rotator cuff tear or rupture of right shoulder, not specified as traumatic (principal); M19.011 Primary osteoarthritis, right shoulder; S43.431A Superior glenoid labrum lesion of right shoulder, initial encounter; X58.XXXA Exposure to other specified factors, initial encounter
CPT/HCPCS: 73221

== ENCOUNTER 2024-08-20 11:00 | Outpatient (RCR) | payer MEDICARE, OTHER, SELFPAY ==
[2024-07-23 12:35] VITALS: BP_SYST 110
--- NOTE | 2024-07-23 13:30 | OPREHPOC ---
Outpatient Therapy Plan of Care This is a Multidisciplinary Plan of Care that may contain components documented by all disciplines (PT, OT, and ST.) PT Problem 1 PT Problem #1 Knowledge Deficit PT Goal 1 Goal / Goal Update *independent with HEP Target Visit 8 PT Problem 2 PT Problem #2 Impaired Flexibility PT Goal 1 Goal / Goal Update * increase R shoulder ROM, to improve ability to reach overhead with kitchen tasks and behind back with bathing/dressing: active in standing 1* flexion to 140; 2* IR- reach behind back, fingers to distal scapula Target Visit 8 PT Problem 3 PT Problem #3 Impaired Strength PT Goal 1 Goal / Goal Update *increase strength of R shoulder, to improve use of dominant arm for home and self care tasks in standing, active x 5 reps 1* flexion to 140' 2* IR fingers to distal scapula 3* shoulder flexion to 90' with 3# hand wt x 5 reps Target Visit 8
--- NOTE | 2024-07-23 13:30 | PTOPEVAL1 ---
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 Self assessment DASH rating of 13% limitation in activity level. She is R hand dominant and active lifestyle. X ray reports moderate OA of GH joint and A-C joint. Pain is increased with use of R arm reaching overhead and getting comfortable with sleeping. With the evaluation: decreased R shoulder IR, abduction and flexion motions with decrease strength and IR most painful motion; rounded shoulder posture and scoliosis with winging of R scapula. Skilled PT services are indicated for modalities to decrease pain, therapeutic exercises to increase ROM and strength of R shoulder, with education for HEP and posture. Plan of Care Interventions Electrical Stimulation,Hot Pack/Cold Pack,Manual Therapy,Neuro Re-education,Patient/Caregiver Education,Therapeutic Activities,Therapeutic Exercise,Ultrasound,Other Other Interventions taping PT Services Indicated Yes Treatment Frequency and 1-2x/wk for 8 visits Duration These treatments will address the objective and functional deficits as defined above. The patient will be advanced safely and appropriately in order for the patient to progress towards his/her prior level of function. Additional exercises will be introduced and as well as a comprehensive home exercise program upon discharge, if needed, ?to ensure carryover of functional gains achieved in the clinic. This treatment plan has been reviewed and agreement upon by the patient.
[2024-08-20 11:05] VITALS: BP_SYST 140
--- NOTE | 2024-08-20 11:49 | PTOPDC ---
Assessment and note entered by Becky Garcia, PT Assessment Status Discharge ICD-10 Condition Codes (PT) Pain in right shoulder M25.511 Onset about 1 month ago Subjective Information shoulder is better, no pain, have been doing the exercises at home; every day varies with activity I can do with the arm; have rearranged the kitchen cabinets to lower positions; have learned to do things differently so my shoulder is OK. have an appointment with Dr Freeman in August. Reported Pain Level Pain Score Self Report Additional Pain Score Comments pain range in the past week 0-4/10; Assessment PT Clinical Summary Antonella has received 8 PT sessions. She has improved with pain rating of 0-4/10; active ROM and strength of R shoulder; education completed for HEP and posture correction. And pain control with balance of activity/rest and decreased motions that increase pain. Self assessment with Quick DASH rating of 16% limitation in activity level. Active ROM of R shoulder: flexion 135', abduction 125', IR- reach behind back, fingers to distal scapula and ER- reaching to back of head, fingers to cervical spine. The goals were partially achieved. Discharge PT. She is to continue with her HEP, posture correction and monitor pain with activity. Plan of Care PT Services Indicated No
== END 2024-08-20 13:54 | disposition home or self-care (01) ==
LOC: ANHPT 11:00
PROVIDERS: PCP Emergency Medicine; Visit Provider Emergency Medicine
DX: M25.511 Pain in right shoulder (principal)
CPT/HCPCS: 97110; 97140; 97161; 97530

== ENCOUNTER 2024-10-30 10:45 | Emergency (ER) | payer MEDICARE, OTHER, SELFPAY ==
--- NOTE | 2024-10-30 10:46 | ED_ITS ---
HPI - URI/Sore Throat General Stated Complaint: short of breath Time Seen by Provider: 10/30/24 10:45 Source: patient Mode of arrival: ambulatory Limitations: no limitations History of Present Illness HPI Narrative: Patient is a 79-year-old female who presents with shortness breath with exertion over the last 5 days. Denies it symptoms are worsening. Patient has history of DVT and PE in 2019. Patient is still on Eliquis. Denies any new clots since then. Denies any fever, chills, nausea, vomiting, diarrhea, congestion, sore throat, cough. Denies any history of heart condition or more swelling than normal. Related Data Home Medications ?Medication ?Instructions ?Recorded ?Confirmed ?Last Taken ?Type cholecalciferol (vitamin D3) 25 1,000 unit PO DAILY 06/25/19 09/19/24 Unknown History mcg (1,000 unit) capsule [id number] 8 mg-folic 400 1 tablet PO DAILY 06/25/19 09/19/24 Unknown History mcg-K 50 mcg-lutein 300 mcg tablet (Centrum Silver Women) apixaban 5 mg tablet (Eliquis) 5 mg PO BID 07/18/24 09/19/24 Unknown History inulin 1.5 gram chewable tablet 1.5 g PO .occasionally 07/18/24 07/18/24 Unknown History Fiber Choice PO 09/19/24 09/19/24 Unknown History Fungus Eliminator PO 09/19/24 09/19/24 Unknown History MSM Joint Health PO 09/19/24 09/19/24 Unknown History Tumeric PO 09/19/24 09/19/24 Unknown History Allergies Allergy/AdvReac Type Severity Reaction Status Date / Time tramadol AdvReac Intermediate Nausea Verified 10/30/24 10:56 Review of Systems Review of Systems: All systems reviewed & are unremarkable except as noted in HPI and below Constitutional: Constitutional: Denies chills, Denies fatigue, Denies fever(s), Denies headache(s), Denies malaise and Denies weakness Eyes: Eyes: Denies blurry vision, Denies itchy eyes and Denies loss of vision ENT: Denies otalgia, Denies headache(s), Denies nasal congestion, Denies sinus pain and Denies sore throat Cardiovascular: Cardiovascular: Denies chest pain, Denies irregular heart rhythm and Denies dyspnea Respiratory: Respiratory: Denies cough, Denies dyspnea and Reports dyspnea on exertion Gastrointestinal: Gastrointestinal: Denies abdominal pain, Denies diarrhea, Denies nausea and Denies vomiting Musculoskeletal: Musculoskeletal: Denies back pain, Denies myalgias and Denies arthralgias Integumentary/Breasts: Skin/Breast: Denies pruritus and Denies rash Neurologic: Denies headache(s), Denies loss of vision and Denies weakness Psychiatric: Psychiatric: Reports no additional psychiatric complaints Endocrine: Endocrine: Denies fatigue Allergic/Immunologic: Allergic/Immunologic: Denies itchy eyes PMFSH Past Medical History Medical History Pulmonary emboli DVT (deep venous thrombosis) Cellulitis 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 Seasonal allergies Primary osteoarthritis involving multiple joints Postmenopausal History of breast cancer in female Cellulitis of right foot Pulmonary embolism Breast cancer With chemo and a right-sided lumpectomy Other screening mammogram Hyperlipidemia Surgical History Surgical History H/O foot surgery Right foot June 2019 Family History Family History Sibling Family history of multiple sclerosis Mother Family history of Alzheimer's disease, Onset Age: 86 TIA (transient ischemic attack) Father Heart disease Other Family history of coronary artery disease Social History Social History Smoking status: Former smoker Smoking end date: 04/25/74 Alcohol intake: current Substance use: never Substance use type: does not use Do You Feel Safe in your Home?: Yes Lack of Transportation: No Lack of Food: Never True Current Housing: I Have Housing Concerned About Future Housing: No Difficulty Paying Gas/Electric Bills: No Difficulty Paying for Meds: No Currently Unemployed: No Education: Associate Degree Difficulty w/ Childcare or Family Care: No Comments At time of signature, agree with nursing past medical, surgical, social and family history. There is no relevant family history pertinent to the presenting complaint. Exam Const: General: cooperative, healthy appearing, comfortable, no acute distress and well nourished Nutritional Appearance: well nourished Orientation/consciousness: patient oriented x3 Limitations: no limitations HENMT: Head: normal to inspection, normocephalic and atraumatic Ears: hearing grossly normal bilaterally, external ears normal, TM's normal bilaterally, EAC's normal and no periauricular adenopathy Face/Nose/Sinus: Normal external nose present, Normal nasal mucous membranes and turbinates present, normal facial exam, sinuses nontender and face symmetric Face and sinus: normal facial exam, sinuses nontender and face symmetric Mouth: Yes Normal oral and palatal mucosa present, Yes lip normal, Yes tongue normal, Yes Normal salivary glands and ducts present, Yes oropharynx normal and Yes moist mucous membranes Teeth and gingiva: dentition normal Throat: posterior oropharynx normal, tonsils normal and uvula midline Eyes: General: appearance normal, both eyes and all related structures Alignment and Position: alignment normal and position normal Periorbital: periorbital findings normal Eyelids: eyelids normal Pupils: Equal, round and reactive pupils present Neck: Neck: normal visual inspection, full ROM, no lymphadenopathy and supple Chest: Chest palpation & inspection: normal inspection of the chest and normal palpation of entire chest wall Resp: Effort & Inspection: normal respiratory effort, able to speak in complete sentences and no cough Auscultation: clear to auscultation bilaterally, no crackles, no rales, no rhonchi and no wheezes Cardio: Rate: regular rate Rhythm: regular rhythm Heart sounds: S1 normal heart sound present and S2 normal heart sound present GI: Inspection: normal to inspection Skin: General skin exam: normal color and no rashes or lesions noted Neuro: General: patient oriented x3 and moves all extremities Cranial nerves: Yes Equal, round and reactive pupils present Speech: normal speech Gait exam (Neuro): Normal gait present Extrem: General: normal to inspection, full ROM and no edema Psych: Appearance: grossly normal and well kempt Mental Status: mental status grossly normal Speech and movement: Normal speech and movement present Affect: normal affect Attitude: cooperative Thought process: Normal thought process present Course Course Emergency Course: Patient being transferred to [facility] hospital for further workup and evaluation. Patient concerned she may have a blood clot in her lungs when she did in 2019. Requesting that be ruled out. Informed patient that is not something we can do at this facility. Portions of this record may have been created with voice recognition software Level of Care: Express Care Visit Vital Signs Vital signs: Vital Signs Temperature 36.3 C L 10/30/24 10:52 Pulse Rate 85 10/30/24 10:52 Respiratory Rate 20 10/30/24 10:52 Blood Pressure 161/80 H 10/30/24 10:52 Pulse Oximetry 94 10/30/24 10:52 Oxygen Delivery Room Air 10/30/24 10:52 Temperature 36.3 C L 10/30/24 10:52 Pulse Rate 85 10/30/24 10:52 Respiratory Rate 20 10/30/24 10:52 Blood Pressure 161/80 H 10/30/24 10:52 Pulse Oximetry 94 10/30/24 10:52 Oxygen Delivery Room Air 10/30/24 10:52 Reviewed Transfer Transfered to: [facility] Transportation: Other (Private auto, patient declined EMS transfer) Transfer rationale: Patient being transferred to [facility] for further workup and evaluation. Patient concerned she may have a blood clot in her lungs when she did in 2019. Requesting that be ruled out. Informed patient that is not something we can do at this facility. Accepting physician: Lindsay LEWIS MDM - URI/Sore Throat MDM Narrative Medical decision making narrative: Patient being transferred to [facility] for further workup and evaluation. Patient concerned she may have a blood clot in her lungs when she did in 2019. Requesting that be ruled out. Informed patient that is not something we can do at this facility. At the time of discharge patient was able to speak in full sentences and walk unassisted with no obvious signs of respiratory distress. Lung sounds are clear and vital signs were stable other than episodic hypertension Differential Diagnosis Differential diagnosis: Likely upper respiratory infection, viral infection, bronchitis and other (PE, DVT) Medical Records Attestation: I reviewed the patient's medical records. Discharge Plan Discharge Clinical Impression: Breathlessness on mild exertion Patient Disposition: Acute Care Hospital Condition: Stable Patient Language: Montserratian Prescriptions: No Action cholecalciferol (vitamin D3) 25 mcg (1,000 unit) capsule 1,000 unit PO DAILY Centrum Silver Women 8 mg iron-400 mcg-300 mcg tablet 1 tablet PO DAILY inulin 1.5 gram tablet,chewable 1.5 g PO .occasionally Eliquis 5 mg tablet 5 mg PO BID Tumeric PO Rx Instructions: 500mg Fungus Eliminator PO [facility] Joint Health PO Fiber Choice PO Calcium 600 + D(3) 600 mg calcium- 200 unit capsule 1 cap PO DAILY Qty: 30 0RF gelatin 650 mg capsule See Rx Instructions .ROUTE .COMPLEX Qty: 30 0RF Rx Instructions: Take 2 capsule by oral route daily; [id number] [MegaKrill] [id number] mg capsule See Rx Instructions PO DAILY Qty: 30 0RF Rx Instructions: Take 1 PO daily; Follow-up/Referrals: Richard Canas MD [Primary Care Provider] - Time of Disposition: 12:37
[2024-10-30 10:52] VITALS: BP 161/80; PULSE 85; RESP 20; TEMP 36.3; O2SAT 94
== END 2024-10-30 12:34 | disposition short-term general hospital (02) ==
PROVIDERS: Emergency Provider Nurse Practitioner Family; PCP Emergency Medicine
DX: R06.09 Other forms of dyspnea (principal); Z86.718 Personal history of other venous thrombosis and embolism; Z86.711 Personal history of pulmonary embolism; E78.5 Hyperlipidemia, unspecified; M15.9 Polyosteoarthritis, unspecified; Z85.3 Personal history of malignant neoplasm of breast; Z90.11 Acquired absence of right breast and nipple; Z92.21 Personal history of antineoplastic chemotherapy; Z87.891 Personal history of nicotine dependence
CPT/HCPCS: 99212; G0463

== ENCOUNTER 2025-01-09 07:05 | Outpatient (CLI) | payer MEDICARE, OTHER, SELFPAY ==
[2025-01-09 07:46] LABS: Alanine Aminotransferase 27 U/L (6-35); Albumin Level 3.9 g/dL (3.5-5.1); Alkaline Phosphatase 101 U/L (38-126); Anion Gap 5 mmol/L (4-12); Aspartate Amino Transferase 33 U/L (14-36); Bilirubin,Total 0.6 mg/dL (0.2-1.3); Blood Urea Nitrogen 20 mg/dL (7-17); Calcium 9.1 mg/dL (8.4-10.2); Carbon Dioxide 26 mmol/L (22-30); Chloride 108 mmol/L (98-107); Cholesterol 259 mg/dL (0-200); Estimated Glomerular Filt Rate 58; Glucose 86 mg/dL (65-110); HDL Direct 52 mg/dL; Potassium 4.5 mmol/L (3.4-5.0); Sodium 139 mmol/L (137-145); Total Protein 6.9 g/dL (6.3-8.2); Triglycerides 106 mg/dL (<150)
== END 2025-01-09 07:06 | disposition home or self-care (01) ==
LOC: ANHLAB 07:07
PROVIDERS: PCP Emergency Medicine; Visit Provider Emergency Medicine
DX: E55.9 Vitamin D deficiency, unspecified (principal); I10 Essential (primary) hypertension; E78.5 Hyperlipidemia, unspecified
CPT/HCPCS: 36415; 80053; 80061; 82306